=== PATIENT | female | born 1955 | race African-American/Black ===

== ENCOUNTER → 2016-09-17 | Outpatient (REF) | payer OTHER ==
[~2016-09-17] MED LIST: /TIOT18INH INH; ADVAIR PO; ALLE25CA OR; ASPI81TA83 OR; ATEN25TA OR; DYAZ37.5 OR; IBUP600T OR; ROSU10TA OR; VENTAER IN; VICO5TAB PO
[2016-09-17 19:58] LABS: ANION GAP 9 MEQ/L (8-16); BLOOD UREA NITROGEN 15 MG/DL (7-18); CALCIUM LEVEL 9.6 MG/DL (8.8-10.2); CARBON DIOXIDE LEVEL 29 MEQ/L (21-32); CHLORIDE LEVEL 104 MEQ/L (98-107); CREATININE FOR GFR 0.87 MG/DL (0.55-1.02); GLOMERULAR FILTRATION RATE > 60.0 (>45); GLUCOSE, FASTING 91 MG/DL (80-110); MAGNESIUM LEVEL 2.5 MG/DL (1.8-2.4); POTASSIUM SERUM 4.1 MEQ/L (3.5-5.1); SODIUM LEVEL 142 MEQ/L (136-145)
== END | disposition home or self-care (01) ==
LOC: M SFHCADAM 15:59
PROVIDERS: ATTEND Physician Assistant
DX: I10 Essential (primary) hypertension (principal); R94.31 Abnormal electrocardiogram [ECG] [EKG]; G89.29 Other chronic pain

== ENCOUNTER → 2016-11-05 | Outpatient (CLI) | payer OTHER ==
--- NOTE | 2016-11-05 17:48 | ECHO ---
DATE OF PROCEDURE: 11/05/2016 REFERRING PHYSICIAN; Bridgette Hoffmann INDICATION: Abnormal ECG. HEIGHT: 163 cm WEIGHT: 68 kg Dimensions: IVS: 1.2 LV: 4.7 LVPW: 1.3 LA: 3.0 Aorta 3.3. FINDINGS: Study is of fair technical quality. Left ventricle is of normal size and hyperdynamic left ventricle (LV) systolic function, estimated left ventricle ejection fraction (LVEF) approximately 70%. Mild left ventricular hypertrophy (LVH) is noted. Right ventricle appears normal. Both atria appear grossly normal. No pericardial effusion is noted. Aortic valve is mildly sclerotic but has normal mobility. Mitral and tricuspid valves appear normal. Pulmonic valve was not well seen. Inferior vena cava was not well seen. Aortic root, aortic arch and abdominal aorta all appear normal. Doppler interrogation of aortic valve reveals no stenosis or insufficiency. There is mild tricuspid and mild pulmonic insufficiency. Quality of tricuspid regurgitation (TR) jet was not sufficient to adequately estimate pulmonary artery pressure. Mitral inflow pattern and tissue Doppler imaging of mitral annulus reveal grade 1 diastolic dysfunction. CONCLUSIONS: 1. Study is of fair technical quality. 2. Normal LV size with mild LVH and hyperdynamic LV systolic function. Grade 1 diastolic dysfunction. 3. No hemodynamically significant valvular disease. 4. Unable to estimate central venous pressure and pulmonary artery pressure. COMMENT: Subacute bacterial endocarditis (SBE) prophylaxis is not recommended.
== END ==
LOC: M CARPUL 14:39
PROVIDERS: ATTEND Physician Assistant
DX: R94.31 Abnormal electrocardiogram [ECG] [EKG] (principal)

== ENCOUNTER → 2017-10-12 | Outpatient (CLI) | payer OTHER | LOC: M WHC 14:02 | DX: Z12.31 Encounter for screening mammogram for malignant neoplasm of breast (principal); Z78.0 Asymptomatic menopausal state | CPT/HCPCS: 77067 ==

== ENCOUNTER → 2017-10-26 | Outpatient (REF) | payer OTHER ==
[2017-10-26 20:04] LABS: APPEARANCE, URINE HAZY (CLEAR); BACTERIA, URINE AUTO 3+ (NEGATIVE); BILIRUBIN, URINE AUTO NEGATIVE (NEGATIVE); BLOOD, URINE BLOOD NEGATIVE (NEGATIVE); CALCIUM OXALATE CRYSTALS SMALL; COLOR, URINE YELLOW (YELLOW); GLUCOSE, URINE (UA) AUTO NEGATIVE (NEGATIVE); KETONE, URINE AUTO NEGATIVE (NEGATIVE); LEUKOCYTE ESTERASE, URINE AUTO NEGATIVE (NEGATIVE); MUCUS, URINE SMALL (NEGATIVE); NITRITE, URINE AUTO NEGATIVE (NEGATIVE); PROTEIN, URINE AUTO NEGATIVE (NEGATIVE); RBC, URINE AUTO 0 /HPF (0-3); SPECIFIC GRAVITY URINE AUTO 1.016 (1.002-1.035); SQUAMOUS EPITHELIAL CELL UR AU 1 /HPF (0-6); UROBILINOGEN, URINE AUTO 0.2 mg/dL (0.0-2.0); WBC, URINE AUTO 1 /HPF (0-3)
== END ==
LOC: M SFHCADAM 15:50
DX: R30.0 Dysuria (principal); F11.90 Opioid use, unspecified, uncomplicated; F17.219 Nicotine dependence, cigarettes, with unspecified nicotine-induced disorders; I10 Essential (primary) hypertension; R63.5 Abnormal weight gain; M15.9 Polyosteoarthritis, unspecified; E78.4 Other hyperlipidemia
CPT/HCPCS: 81001

== ENCOUNTER 2018-02-20 14:58 | Emergency (ER) | payer OTHER ==
[2018-02-20] MEDS: AMOXICILLIN 500 MG CAP PO (19:30)
== END 2018-02-20 19:37 | disposition home or self-care (01) ==
LOC: M ED 14:58
DX: K04.7 Periapical abscess without sinus (principal); S02.5XXA Fracture of tooth (traumatic), initial encounter for closed fracture; X58.XXXA Exposure to other specified factors, initial encounter; Y92.89 Other specified places as the place of occurrence of the external cause; I10 Essential (primary) hypertension; F17.200 Nicotine dependence, unspecified, uncomplicated; Z79.899 Other long term (current) drug therapy; Z79.51 Long term (current) use of inhaled steroids
CPT/HCPCS: 99282

== ENCOUNTER 2018-05-31 13:29 | Inpatient (IN) | payer OTHER ==
[2018-05-31 14:58] LABS: BASO % 0.4 % (0.0-1.0); EOS # 0.1 10^3/uL (0.0-0.50); EOS % 1.1 % (0.0-3.0); HEMATOCRIT 42.9 % (36.0-47.0); HEMOGLOBIN 13.7 g/dl (12.0-15.5); IMMATURE GRANULOCYTE % 0.2 % (0-3.0); LYMPH # 1.8 10^3/uL (1.5-4.5); LYMPH % 19.3 % (24.0-44.0); MEAN CORPUSCULAR HEMOGLOBIN 30.3 pg (27.0-33.0); MEAN CORPUSCULAR HGB CONC 31.9 g/dl (32.0-36.5); MEAN CORPUSCULAR VOLUME 94.9 fl (80.0-96.0); MONO # 0.6 10^3/uL (0.0-0.8); NEUTROPHILS # 6.8 10^3/uL (1.8-7.7); PLATELET COUNT, AUTOMATED 285 10^3/uL (150-450); RED BLOOD COUNT 4.52 10^6/uL (4.00-5.40); RED CELL DISTRIBUTION WIDTH 13.7 % (11.5-14.5); WHITE BLOOD COUNT 9.4 10^3/uL (4.0-10.0)
[2018-05-31 15:13] LABS: PARTIAL THROMBOPLASTIN TIME 33.2 SECONDS (25.4-37.6)
[2018-05-31 15:18] LABS: INR 0.96; PROTHROMBIN TIME 12.9 SECONDS (12.1-14.4)
[2018-05-31 15:27] LABS: ANION GAP 8 MEQ/L (8-16); BLOOD UREA NITROGEN 15 MG/DL (7-18); CALCIUM LEVEL 9.3 MG/DL (8.8-10.2); CARBON DIOXIDE LEVEL 32 MEQ/L (21-32); CHLORIDE LEVEL 104 MEQ/L (98-107); CPK CREATINE PHOSPHOKINASE 157 U/L (26-192); GLOMERULAR FILTRATION RATE > 60.0 (>45); GLUCOSE, FASTING 94 MG/DL (70-100); MB/CK RELATIVE INDEX 1.15 (< OR =4); POTASSIUM SERUM 3.3 MEQ/L (3.5-5.1); SODIUM LEVEL 144 MEQ/L (136-145); TROPONIN I < 0.02 NG/ML (< 0.10)
[2018-05-31] MEDS ORDERED: BISACODYL 10 MG SUPP PR (17:15)
[2018-05-31] MEDS: LABETALOL HCL 100 MG/20 ML VIAL IV ×3 (18:09→23:57)
[2018-05-31] MEDS: AMPICILLIN SOD/SULBACTAM SOD 3 GM in D5W MINI-BAG PLUS 100 ML IV ×2 (18:27→23:00)
[2018-05-31 18:38] LABS: ERYTHROCYTE SEDIMENTATION RATE 32 mm/hr (0-30)
[2018-05-31 18:50] LABS: C REACTIVE PROTEIN QUANTITATIV 1.64 MG/DL (0.00-0.30); CPK CREATINE PHOSPHOKINASE 174 U/L (26-192); MAGNESIUM LEVEL 2.5 MG/DL (1.8-2.4); MB/CK RELATIVE INDEX 0.86 (< OR =4); TROPONIN I < 0.02 NG/ML (< 0.10)
[2018-05-31] MEDS ORDERED: NORCO, ANEXSIA 5/325MG TABLET (HYDROcodone/ACETAMINOPHEN) PO (19:00)
[2018-05-31] MEDS: IPRATROPIUM 0.5MG/ALBUTEROL 2.5MG INH SOL UD 3ML (DUONEB)(J7620) NEB (19:57)
[2018-05-31] MEDS: HEPARIN SOD (PORCINE) 5000 UNITS/ML VIAL SQ (20:23)
[2018-05-31] MEDS: KCL 20MEQ in NS 1000ML 1,000 ML IV (20:23)
[2018-05-31] MEDS: ASPIRIN 300 MG SUPP PR (20:30)
[2018-05-31] MEDS: FLUTICASONE PROP 0.05% NASAL SPRAY 16 GM (FLONASE) (20:32)
[2018-05-31] MEDS: NICOTINE 21MG/24HR 1 EA TRANSDERMAL TD (20:52)
[2018-05-31] MEDS: ADVAIR HFA 115/21MCG INHALER INH (23:46)
[2018-06-01] MEDS: IPRATROPIUM 0.5MG/ALBUTEROL 2.5MG INH SOL UD 3ML (DUONEB)(J7620) NEB ×5 (01:17→20:00)
[2018-06-01 01:32] LABS: CK-MB VALUE MASS < 1.0 NG/ML (<3.6); CPK CREATINE PHOSPHOKINASE 134 U/L (26-192); MB/CK RELATIVE INDEX 0.75 (< OR =4); TROPONIN I < 0.02 NG/ML (< 0.10)
[2018-06-01] MEDS: AMPICILLIN SOD/SULBACTAM SOD 3 GM in D5W MINI-BAG PLUS 100 ML IV ×2 (04:44→12:02)
[2018-06-01 05:13] LABS: HEMATOCRIT 39.5 % (36.0-47.0); HEMOGLOBIN 12.6 g/dl (12.0-15.5); MEAN CORPUSCULAR HGB CONC 31.9 g/dl (32.0-36.5); PLATELET COUNT, AUTOMATED 265 10^3/uL (150-450); RED CELL DISTRIBUTION WIDTH 13.7 % (11.5-14.5); WHITE BLOOD COUNT 8.2 10^3/uL (4.0-10.0)
[2018-06-01 05:35] LABS: ALBUMIN 3.4 GM/DL (3.2-5.2); ALBUMIN/GLOBULIN RATIO 0.83 (1.00-1.93); ALKALINE PHOSPHATASE 71 U/L (45-117); ALT/SGPT 20 U/L (12-78); ANION GAP 7 MEQ/L (8-16); AST/SGOT 15 U/L (7-37); BILIRUBIN,TOTAL 0.8 MG/DL (0.2-1.0); BLOOD UREA NITROGEN 15 MG/DL (7-18); CALCIUM LEVEL 8.7 MG/DL (8.8-10.2); CARBON DIOXIDE LEVEL 31 MEQ/L (21-32); CHLORIDE LEVEL 105 MEQ/L (98-107); CHOLESTEROL LEVEL 212 MG/DL (<200); CHOLESTEROL RISK RATIO 6.424 (<5); CREATININE FOR GFR 0.86 MG/DL (0.55-1.30); GLOMERULAR FILTRATION RATE > 60.0 (>45); GLUCOSE, FASTING 111 MG/DL (70-100); HDL CHOLESTEROL 33 MG/DL (>40); LDL CHOLESTEROL 144 MG/DL (<100); MAGNESIUM LEVEL 2.1 MG/DL (1.8-2.4); NON-HDL-C 179 MG/DL; SODIUM LEVEL 143 MEQ/L (136-145); TOTAL PROTEIN 7.5 GM/DL (6.4-8.2); TRIGLYCERIDES LEVEL 173 MG/DL (<150)
[2018-06-01] MEDS: LABETALOL HCL 100 MG/20 ML VIAL IV ×3 (06:00→18:33)
[2018-06-01] MEDS: KCL 10MEQ/100ML SWI (KRUN) 10 MEQ in APPROPRIATE DILUENT 1 EA IV ×5 (06:54→12:03)
[2018-06-01] MEDS: TIOTROPIUM INHALER/CAPSULE (SPIRIVA) INH (08:31)
[2018-06-01] MEDS: ADVAIR HFA 115/21MCG INHALER INH ×2 (08:32→20:52)
[2018-06-01] MEDS: HEPARIN SOD (PORCINE) 5000 UNITS/ML VIAL SQ ×2 (08:52→21:16)
[2018-06-01] MEDS: ASPIRIN 300 MG SUPP PR (08:54)
[2018-06-01] MEDS: ATORVASTATIN 20 MG TAB PO (09:13)
[2018-06-01 09:48] LABS: CK-MB VALUE MASS < 1.0 NG/ML (<3.6); CPK CREATINE PHOSPHOKINASE 137 U/L (26-192); TROPONIN I < 0.02 NG/ML (< 0.10)
[2018-06-01 09:58] LABS: MB/CK RELATIVE INDEX 0.73 (< OR =4)
[2018-06-01] MEDS: KCL 20MEQ in NS 1000ML 1,000 ML IV ×2 (12:03→18:37)
[2018-06-01] MEDS: LevoFLOXacin IV 500 MG in APPROPRIATE DILUENT 1 EA IV (18:37)
[2018-06-01] MEDS: ACETAMINOPHEN 650 MG SUPP PR (20:14)
[2018-06-01] MEDS: NICOTINE 21MG/24HR 1 EA TRANSDERMAL TD (21:00)
[2018-06-01] MEDS: FLUTICASONE PROP 0.05% NASAL SPRAY 16 GM (FLONASE) (21:16)
[2018-06-02] MEDS: IPRATROPIUM 0.5MG/ALBUTEROL 2.5MG INH SOL UD 3ML (DUONEB)(J7620) NEB ×4 (01:00→20:00)
[2018-06-02] MEDS: KCL 20MEQ in NS 1000ML 1,000 ML IV (05:00)
[2018-06-02 05:09] LABS: HEMATOCRIT 38.2 % (36.0-47.0); MEAN CORPUSCULAR HEMOGLOBIN 29.9 pg (27.0-33.0); MEAN CORPUSCULAR HGB CONC 31.4 g/dl (32.0-36.5); PLATELET COUNT, AUTOMATED 247 10^3/uL (150-450); RED BLOOD COUNT 4.02 10^6/uL (4.00-5.40); RED CELL DISTRIBUTION WIDTH 13.6 % (11.5-14.5); WHITE BLOOD COUNT 7.7 10^3/uL (4.0-10.0)
[2018-06-02 05:30] LABS: ALBUMIN 3.2 GM/DL (3.2-5.2); ALBUMIN/GLOBULIN RATIO 0.76 (1.00-1.93); ALKALINE PHOSPHATASE 67 U/L (45-117); ALT/SGPT 22 U/L (12-78); ANION GAP 9 MEQ/L (8-16); AST/SGOT 17 U/L (7-37); BILIRUBIN,TOTAL 0.8 MG/DL (0.2-1.0); BLOOD UREA NITROGEN 9 MG/DL (7-18); CALCIUM LEVEL 8.5 MG/DL (8.8-10.2); CARBON DIOXIDE LEVEL 27 MEQ/L (21-32); CHLORIDE LEVEL 107 MEQ/L (98-107); CREATININE FOR GFR 0.84 MG/DL (0.55-1.30); GLOMERULAR FILTRATION RATE > 60.0 (>45); GLUCOSE, FASTING 106 MG/DL (70-100); POTASSIUM SERUM 3.2 MEQ/L (3.5-5.1); SODIUM LEVEL 143 MEQ/L (136-145); TOTAL PROTEIN 7.4 GM/DL (6.4-8.2)
[2018-06-02] MEDS: LABETALOL HCL 100 MG/20 ML VIAL IV ×4 (06:05→15:25)
[2018-06-02] MEDS: ADVAIR HFA 115/21MCG INHALER INH ×2 (07:50→20:20)
[2018-06-02] MEDS: TIOTROPIUM INHALER/CAPSULE (SPIRIVA) INH (07:50)
[2018-06-02] MEDS: HEPARIN SOD (PORCINE) 5000 UNITS/ML VIAL SQ ×2 (08:47→19:38)
[2018-06-02] MEDS: ATORVASTATIN 20 MG TAB PO (08:47)
[2018-06-02] MEDS: ASPIRIN 325 MG TAB PO (08:47)
[2018-06-02] MEDS ORDERED: LABETALOL HCL 100 MG/20 ML VIAL IV (12:00)
[2018-06-02] MEDS: LevoFLOXacin IV 500 MG in APPROPRIATE DILUENT 1 EA IV (17:12)
[2018-06-02] MEDS: LABETALOL 100 MG TAB PO (18:18)
[2018-06-02] MEDS: NICOTINE 21MG/24HR 1 EA TRANSDERMAL TD ×2 (19:38→19:59)
[2018-06-02] MEDS: LISINOPRIL 5 MG TAB PO (19:39)
[2018-06-02] MEDS: FLUTICASONE PROP 0.05% NASAL SPRAY 16 GM (FLONASE) (19:39)
[2018-06-02] MEDS: hydrALAZINE INJ 20 MG/ML VIAL IV (21:48)
[2018-06-03] MEDS: LABETALOL 100 MG TAB PO ×5 (00:31→23:10)
[2018-06-03] MEDS: IPRATROPIUM 0.5MG/ALBUTEROL 2.5MG INH SOL UD 3ML (DUONEB)(J7620) NEB ×4 (01:11→20:00)
[2018-06-03 04:31] LABS: HEMATOCRIT 38.3 % (36.0-47.0); HEMOGLOBIN 12.4 g/dl (12.0-15.5); MEAN CORPUSCULAR HEMOGLOBIN 30.2 pg (27.0-33.0); MEAN CORPUSCULAR HGB CONC 32.4 g/dl (32.0-36.5); MEAN CORPUSCULAR VOLUME 93.4 fl (80.0-96.0); PLATELET COUNT, AUTOMATED 266 10^3/uL (150-450); RED CELL DISTRIBUTION WIDTH 13.8 % (11.5-14.5); WHITE BLOOD COUNT 8.6 10^3/uL (4.0-10.0)
[2018-06-03 04:51] LABS: ALBUMIN 3.3 GM/DL (3.2-5.2); ALBUMIN/GLOBULIN RATIO 0.77 (1.00-1.93); ALKALINE PHOSPHATASE 67 U/L (45-117); ALT/SGPT 24 U/L (12-78); ANION GAP 9 MEQ/L (8-16); AST/SGOT 18 U/L (7-37); BILIRUBIN,TOTAL 0.6 MG/DL (0.2-1.0); BLOOD UREA NITROGEN 9 MG/DL (7-18); CALCIUM LEVEL 8.9 MG/DL (8.8-10.2); CARBON DIOXIDE LEVEL 25 MEQ/L (21-32); CHLORIDE LEVEL 105 MEQ/L (98-107); CREATININE FOR GFR 0.81 MG/DL (0.55-1.30); GLOMERULAR FILTRATION RATE > 60.0 (>45); GLUCOSE, FASTING 115 MG/DL (70-100); MAGNESIUM LEVEL 1.9 MG/DL (1.8-2.4); POTASSIUM SERUM 3.1 MEQ/L (3.5-5.1); SODIUM LEVEL 139 MEQ/L (136-145); TOTAL PROTEIN 7.6 GM/DL (6.4-8.2)
[2018-06-03] MEDS: TIOTROPIUM INHALER/CAPSULE (SPIRIVA) INH (07:49)
[2018-06-03] MEDS: ADVAIR HFA 115/21MCG INHALER INH ×2 (07:50→20:25)
[2018-06-03] MEDS: ASPIRIN 325 MG TAB PO (09:29)
[2018-06-03] MEDS: LISINOPRIL 5 MG TAB PO (09:29)
[2018-06-03] MEDS: ATORVASTATIN 20 MG TAB PO (09:29)
[2018-06-03] MEDS: HEPARIN SOD (PORCINE) 5000 UNITS/ML VIAL SQ (09:30)
[2018-06-03] MEDS: POTASSIUM CHLORIDE 10 MEQ SR TABLET PO (16:17)
[2018-06-03] MEDS: LevoFLOXacin IV 500 MG in APPROPRIATE DILUENT 1 EA IV (17:12)
[2018-06-03] MEDS: FLUTICASONE PROP 0.05% NASAL SPRAY 16 GM (FLONASE) (20:38)
[2018-06-03] MEDS: LISINOPRIL 10 MG TAB PO (20:38)
[2018-06-03] MEDS: NICOTINE 21MG/24HR 1 EA TRANSDERMAL TD ×3 (20:39→21:00)
[2018-06-04] MEDS: IPRATROPIUM 0.5MG/ALBUTEROL 2.5MG INH SOL UD 3ML (DUONEB)(J7620) NEB ×4 (00:45→19:41)
[2018-06-04 04:38] LABS: MEAN CORPUSCULAR HEMOGLOBIN 29.9 pg (27.0-33.0); MEAN CORPUSCULAR HGB CONC 32.4 g/dl (32.0-36.5); MEAN CORPUSCULAR VOLUME 92.3 fl (80.0-96.0); PLATELET COUNT, AUTOMATED 265 10^3/uL (150-450); RED BLOOD COUNT 4.01 10^6/uL (4.00-5.40); RED CELL DISTRIBUTION WIDTH 13.8 % (11.5-14.5); WHITE BLOOD COUNT 7.5 10^3/uL (4.0-10.0)
[2018-06-04 05:01] LABS: ALBUMIN 3.1 GM/DL (3.2-5.2); ALKALINE PHOSPHATASE 60 U/L (45-117); ALT/SGPT 24 U/L (12-78); ANION GAP 10 MEQ/L (8-16); AST/SGOT 16 U/L (7-37); BILIRUBIN,TOTAL 0.8 MG/DL (0.2-1.0); BLOOD UREA NITROGEN 14 MG/DL (7-18); CARBON DIOXIDE LEVEL 26 MEQ/L (21-32); CHLORIDE LEVEL 105 MEQ/L (98-107); CREATININE FOR GFR 0.78 MG/DL (0.55-1.30); GLOMERULAR FILTRATION RATE > 60.0 (>45); GLUCOSE, FASTING 106 MG/DL (70-100); MAGNESIUM LEVEL 1.9 MG/DL (1.8-2.4); POTASSIUM SERUM 3.1 MEQ/L (3.5-5.1); SODIUM LEVEL 141 MEQ/L (136-145); TOTAL PROTEIN 7.5 GM/DL (6.4-8.2)
[2018-06-04] MEDS: LABETALOL 100 MG TAB PO ×4 (06:00→23:12)
[2018-06-04] MEDS: POTASSIUM CHLORIDE 10 MEQ SR TABLET PO ×2 (08:19→20:34)
[2018-06-04] MEDS: ATORVASTATIN 20 MG TAB PO (08:19)
[2018-06-04] MEDS: ASPIRIN 81 MG ENTERIC TAB PO (08:19)
[2018-06-04] MEDS: LISINOPRIL 10 MG TAB PO (08:20)
[2018-06-04] MEDS: APIXABAN 5 MG TAB (ELIQUIS) PO ×2 (08:20→20:34)
[2018-06-04] MEDS: ADVAIR HFA 115/21MCG INHALER INH ×2 (08:44→19:41)
[2018-06-04] MEDS: TIOTROPIUM INHALER/CAPSULE (SPIRIVA) INH (08:45)
[2018-06-04] MEDS: amLODIPine 5 MG TAB PO (15:55)
[2018-06-04] MEDS: LevoFLOXacin IV 500 MG in APPROPRIATE DILUENT 1 EA IV (17:28)
[2018-06-04] MEDS: NICOTINE 21MG/24HR 1 EA TRANSDERMAL TD (20:35)
[2018-06-04] MEDS: FLUTICASONE PROP 0.05% NASAL SPRAY 16 GM (FLONASE) (20:35)
[2018-06-04] MEDS: hydrALAZINE INJ 20 MG/ML VIAL IV (22:27)
[2018-06-05] MEDS: IPRATROPIUM 0.5MG/ALBUTEROL 2.5MG INH SOL UD 3ML (DUONEB)(J7620) NEB ×3 (01:15→13:54)
[2018-06-05 04:39] LABS: HEMOGLOBIN 12.5 g/dl (12.0-15.5); MEAN CORPUSCULAR HEMOGLOBIN 30.2 pg (27.0-33.0); MEAN CORPUSCULAR HGB CONC 32.1 g/dl (32.0-36.5); MEAN CORPUSCULAR VOLUME 94.2 fl (80.0-96.0); PLATELET COUNT, AUTOMATED 290 10^3/uL (150-450); RED BLOOD COUNT 4.14 10^6/uL (4.00-5.40)
[2018-06-05 05:02] LABS: ALBUMIN 3.2 GM/DL (3.2-5.2); ALBUMIN/GLOBULIN RATIO 0.73 (1.00-1.93); ALKALINE PHOSPHATASE 62 U/L (45-117); ALT/SGPT 24 U/L (12-78); ANION GAP 7 MEQ/L (8-16); AST/SGOT 20 U/L (7-37); BILIRUBIN,TOTAL 0.6 MG/DL (0.2-1.0); BLOOD UREA NITROGEN 18 MG/DL (7-18); CALCIUM LEVEL 9.2 MG/DL (8.8-10.2); CARBON DIOXIDE LEVEL 27 MEQ/L (21-32); CHLORIDE LEVEL 108 MEQ/L (98-107); CREATININE FOR GFR 0.84 MG/DL (0.55-1.30); GLOMERULAR FILTRATION RATE > 60.0 (>45); GLUCOSE, FASTING 118 MG/DL (70-100); POTASSIUM SERUM 3.6 MEQ/L (3.5-5.1); SODIUM LEVEL 142 MEQ/L (136-145); TOTAL PROTEIN 7.6 GM/DL (6.4-8.2)
[2018-06-05] MEDS: LABETALOL 100 MG TAB PO ×2 (06:00→12:00)
[2018-06-05] MEDS: ADVAIR HFA 115/21MCG INHALER INH (08:19)
[2018-06-05] MEDS: TIOTROPIUM INHALER/CAPSULE (SPIRIVA) INH (08:19)
[2018-06-05] MEDS: ATORVASTATIN 20 MG TAB PO (09:13)
[2018-06-05] MEDS: ASPIRIN 81 MG ENTERIC TAB PO (09:13)
[2018-06-05] MEDS: amLODIPine 5 MG TAB PO (09:13)
[2018-06-05] MEDS: APIXABAN 5 MG TAB (ELIQUIS) PO (09:13)
[2018-06-05] MEDS: POTASSIUM CHLORIDE 10 MEQ SR TABLET PO (09:14)
[2018-06-05 12:53] LABS: BEDSIDE GLUCOSE 101 MG/DL (80-115)
[2018-06-08 00:07] LABS: ANCA-ATYPICAL <1:20 titer (Neg:<1:20); ANTI THROMBIN 3 ANTIGEN IMMUNO 102 % (72-124); ANTI THROMBIN 3 FUNCT ACTIVITY 133 % (75-135); ANTINUCLEAR ANTIBODIES DIRECT Negative (Negative); CARDIOLIPIN IGA ANTIBODY <9 APL U/mL (0-11); CARDIOLIPIN IGG ANTIBODY <9 GPL U/mL (0-14); CARDIOLIPIN IGM ANTIBODY <9 MPL U/mL (0-12); CYTOPLASMIC NEUTROP AB ANCA-C <1:20 titer (Neg:<1:20); HOMOCYST(E)INE SERUM 11.9 umol/L (0.0-15.0); PERINUCLEAR AB ANCA-P <1:20 titer (Neg:<1:20); PROTEIN C ANTIGEN 141 % (60-150); PROTEIN S ANTIGEN FREE 70 % (57-157); PROTEIN S ANTIGEN TOTAL 124 % (60-150); SJOGREN'S ANTI SS-A <0.2 AI (0.0-0.9); SJOGREN'S ANTI SS-B <0.2 AI (0.0-0.9)
== END 2018-06-05 16:00 | DRG 45 ==
LOC: M ED 13:29 → M ED INP 16:54 → M ICU 20:01
PROVIDERS: Hospitalist
DX: I63.442 Cerebral infarction due to embolism of left cerebellar artery (principal); K76.0 Fatty (change of) liver, not elsewhere classified; R47.01 Aphasia; E55.9 Vitamin D deficiency, unspecified; F17.210 Nicotine dependence, cigarettes, uncomplicated; J44.9 Chronic obstructive pulmonary disease, unspecified; M19.90 Unspecified osteoarthritis, unspecified site; E78.5 Hyperlipidemia, unspecified; J45.909 Unspecified asthma, uncomplicated; I10 Essential (primary) hypertension; R29.810 Facial weakness; M81.0 Age-related osteoporosis without current pathological fracture; K04.7 Periapical abscess without sinus; R47.1 Dysarthria and anarthria; J01.90 Acute sinusitis, unspecified; Z79.899 Other long term (current) drug therapy; Z91.048 Other nonmedicinal substance allergy status; Z90.710 Acquired absence of both cervix and uterus; Z82.3 Family history of stroke; Z79.891 Long term (current) use of opiate analgesic

== ENCOUNTER 2018-06-05 16:05 | Inpatient (IN) | payer OTHER ==
[2018-06-05] MEDS ORDERED: MAALOX 30 ML SUSP *UDC PO (17:30)
[2018-06-05] MEDS ORDERED: IPRATROPIUM 0.5MG/ALBUTEROL 2.5MG INH SOL UD 3ML (DUONEB)(J7620) NEB (17:45)
[2018-06-05] MEDS: LevoFLOXacin 500 MG TABLET PO (18:00)
[2018-06-05] MEDS: ADVAIR HFA 115/21MCG INHALER INH (19:56)
[2018-06-05] MEDS: IPRATROPIUM 0.5MG/ALBUTEROL 2.5MG INH SOL UD 3ML (DUONEB)(J7620) NEB (19:57)
[2018-06-05] MEDS ORDERED: PILL CRUSHER/CUTTER 1 EACH XX (21:30)
[2018-06-05] MEDS: LABETALOL 100 MG TAB PO (21:37)
[2018-06-05] MEDS: APIXABAN 5 MG TAB (ELIQUIS) PO (21:38)
[2018-06-05] MEDS: POTASSIUM CHLORIDE 10 MEQ SR TABLET PO (21:39)
[2018-06-05] MEDS: DOCUSATE SODIUM 100 MG CAP PO (21:41)
[2018-06-05] MEDS: SENNA 8.6 MG TAB (SENOKOT) PO (21:41)
[2018-06-05] MEDS: FLUTICASONE PROP 0.05% NASAL SPRAY 16 GM (FLONASE) NARES (21:58)
[2018-06-06] MEDS: IPRATROPIUM 0.5MG/ALBUTEROL 2.5MG INH SOL UD 3ML (DUONEB)(J7620) NEB ×4 (00:22→20:00)
[2018-06-06] MEDS: TIOTROPIUM INHALER/CAPSULE (SPIRIVA) INH (07:27)
[2018-06-06 07:46] LABS: BASO % 0.5 % (0.0-1.0); EOS # 0.2 10^3/uL (0.0-0.50); EOS % 2.7 % (0.0-3.0); HEMATOCRIT 36.6 % (36.0-47.0); HEMOGLOBIN 11.6 g/dl (12.0-15.5); IMMATURE GRANULOCYTE % 0.5 % (0-3.0); LYMPH # 3.1 10^3/uL (1.5-4.5); LYMPH % 36.7 % (24.0-44.0); MEAN CORPUSCULAR HEMOGLOBIN 29.9 pg (27.0-33.0); MEAN CORPUSCULAR HGB CONC 31.7 g/dl (32.0-36.5); MEAN CORPUSCULAR VOLUME 94.3 fl (80.0-96.0); MONO # 0.6 10^3/uL (0.0-0.8); NEUTROPHILS # 4.5 10^3/uL (1.8-7.7); NEUTROPHILS % 52.6 % (36.0-66.0); PLATELET COUNT, AUTOMATED 302 10^3/uL (150-450); RED BLOOD COUNT 3.88 10^6/uL (4.00-5.40); RED CELL DISTRIBUTION WIDTH 14.2 % (11.5-14.5); WHITE BLOOD COUNT 8.6 10^3/uL (4.0-10.0)
[2018-06-06] MEDS: ADVAIR HFA 115/21MCG INHALER INH ×2 (08:05→21:05)
[2018-06-06 08:08] LABS: ALBUMIN 3.1 GM/DL (3.2-5.2); ALBUMIN/GLOBULIN RATIO 0.74 (1.00-1.93); ALKALINE PHOSPHATASE 63 U/L (45-117); ALT/SGPT 27 U/L (12-78); ANION GAP 7 MEQ/L (8-16); AST/SGOT 22 U/L (7-37); BILIRUBIN,TOTAL 0.8 MG/DL (0.2-1.0); BLOOD UREA NITROGEN 17 MG/DL (7-18); CARBON DIOXIDE LEVEL 28 MEQ/L (21-32); CHLORIDE LEVEL 108 MEQ/L (98-107); CREATININE FOR GFR 0.81 MG/DL (0.55-1.30); GLOMERULAR FILTRATION RATE > 60.0 (>45); GLUCOSE, FASTING 88 MG/DL (70-100); POTASSIUM SERUM 4.1 MEQ/L (3.5-5.1); SODIUM LEVEL 143 MEQ/L (136-145); TOTAL PROTEIN 7.3 GM/DL (6.4-8.2)
[2018-06-06] MEDS: ATORVASTATIN 20 MG TAB PO (08:36)
[2018-06-06] MEDS: amLODIPine 10 MG TAB PO (08:36)
[2018-06-06] MEDS: APIXABAN 5 MG TAB (ELIQUIS) PO ×2 (08:36→20:54)
[2018-06-06] MEDS: ASPIRIN 81 MG ENTERIC TAB PO (08:36)
[2018-06-06] MEDS: LABETALOL 100 MG TAB PO ×3 (08:36→20:55)
[2018-06-06] MEDS: PANTOPRAZOLE 40MG TAB (PROTONIX) PO (08:36)
[2018-06-06] MEDS: NICOTINE 14 MG/24 HR TRANSDERMAL TD (08:37)
[2018-06-06] MEDS: FLUTICASONE PROP 0.05% NASAL SPRAY 16 GM (FLONASE) NARES ×2 (08:37→20:56)
[2018-06-06] MEDS: POTASSIUM CHLORIDE 10 MEQ SR TABLET PO ×2 (08:38→20:54)
[2018-06-06] MEDS: DOCUSATE SODIUM 100 MG CAP PO ×3 (08:38→20:55)
[2018-06-06] MEDS: SODIUM CHLORIDE NASAL 0.65% SPRAY BTL (OCEAN) ×2 (09:00→21:00)
[2018-06-06] MEDS: ASCORBIC ACID 500 MG TAB PO ×2 (11:24→20:54)
[2018-06-06] MEDS: LISINOPRIL 10 MG TAB PO (11:24)
[2018-06-06] MEDS: THIAMINE 100 MG TAB PO (11:24)
[2018-06-06 14:51] LABS: APPEARANCE, URINE CLEAR (CLEAR); BACTERIA, URINE AUTO NEGATIVE (NEGATIVE); BILIRUBIN, URINE AUTO NEGATIVE (NEGATIVE); BLOOD, URINE BLOOD NEGATIVE (NEGATIVE); COLOR, URINE YELLOW (YELLOW); GLUCOSE, URINE (UA) AUTO NEGATIVE (NEGATIVE); KETONE, URINE AUTO NEGATIVE (NEGATIVE); LEUKOCYTE ESTERASE, URINE AUTO NEGATIVE (NEGATIVE); MUCUS, URINE SMALL (NEGATIVE); NITRITE, URINE AUTO NEGATIVE (NEGATIVE); PROTEIN, URINE AUTO NEGATIVE (NEGATIVE); RBC, URINE AUTO 3 /HPF (0-3); SQUAMOUS EPITHELIAL CELL UR AU 1 /HPF (0-6); WBC, URINE AUTO 1 /HPF (0-3)
[2018-06-06] MEDS: LevoFLOXacin 500 MG TABLET PO (17:04)
[2018-06-06] MEDS: SPIRONOLACTONE 25 MG TAB PO (17:08)
[2018-06-06] MEDS: SENNA 8.6 MG TAB (SENOKOT) PO (20:54)
[2018-06-06] MEDS ORDERED: LISINOPRIL 10 MG TAB PO (21:00)
[2018-06-07] MEDS: IPRATROPIUM 0.5MG/ALBUTEROL 2.5MG INH SOL UD 3ML (DUONEB)(J7620) NEB ×4 (01:45→20:00)
[2018-06-07] MEDS: TIOTROPIUM INHALER/CAPSULE (SPIRIVA) INH (07:34)
[2018-06-07] MEDS: ADVAIR HFA 115/21MCG INHALER INH ×2 (07:35→20:11)
[2018-06-07 07:55] LABS: ALBUMIN 3.3 GM/DL (3.2-5.2); ANION GAP 7 MEQ/L (8-16); BLOOD UREA NITROGEN 19 MG/DL (7-18); CALCIUM LEVEL 9.3 MG/DL (8.8-10.2); CARBON DIOXIDE LEVEL 25 MEQ/L (21-32); CHLORIDE LEVEL 110 MEQ/L (98-107); CREATININE FOR GFR 0.85 MG/DL (0.55-1.30); GLOMERULAR FILTRATION RATE > 60.0 (>45); GLUCOSE, FASTING 87 MG/DL (70-100); PHOSPHORUS LEVEL 3.4 MG/DL (2.5-4.9); POTASSIUM SERUM 4.3 MEQ/L (3.5-5.1); SODIUM LEVEL 142 MEQ/L (136-145)
[2018-06-07] MEDS: SODIUM CHLORIDE NASAL 0.65% SPRAY BTL (OCEAN) ×2 (09:00→21:00)
[2018-06-07] MEDS: DOCUSATE SODIUM 100 MG CAP PO ×2 (09:00→21:00)
[2018-06-07] MEDS: FLUTICASONE PROP 0.05% NASAL SPRAY 16 GM (FLONASE) NARES ×2 (09:00→21:18)
[2018-06-07] MEDS ORDERED: PROHANCE 279.3MG/ML 15ML VIAL (A9576) As Ordered (09:07)
[2018-06-07] MEDS: PANTOPRAZOLE 40MG TAB (PROTONIX) PO (10:17)
[2018-06-07] MEDS: amLODIPine 10 MG TAB PO (10:18)
[2018-06-07] MEDS: POTASSIUM CHLORIDE 10 MEQ SR TABLET PO ×2 (10:18→21:18)
[2018-06-07] MEDS: ATORVASTATIN 20 MG TAB PO (10:18)
[2018-06-07] MEDS: SPIRONOLACTONE 25 MG TAB PO (10:23)
[2018-06-07] MEDS: THIAMINE 100 MG TAB PO (10:23)
[2018-06-07] MEDS: LABETALOL 100 MG TAB PO ×3 (10:23→21:17)
[2018-06-07] MEDS: ASPIRIN 81 MG ENTERIC TAB PO (10:24)
[2018-06-07] MEDS: ASCORBIC ACID 500 MG TAB PO ×2 (10:24→21:17)
[2018-06-07] MEDS: APIXABAN 5 MG TAB (ELIQUIS) PO ×2 (10:25→21:17)
[2018-06-07] MEDS: LISINOPRIL 20 MG TAB PO ×2 (13:42→21:18)
[2018-06-07] MEDS: LevoFLOXacin 500 MG TABLET PO (17:46)
[2018-06-07] MEDS: SENNA 8.6 MG TAB (SENOKOT) PO (21:00)
[2018-06-07] MEDS ORDERED: LABETALOL 100 MG TAB PO (21:00)
[2018-06-08] MEDS: IPRATROPIUM 0.5MG/ALBUTEROL 2.5MG INH SOL UD 3ML (DUONEB)(J7620) NEB ×4 (01:31→20:00)
[2018-06-08] MEDS: TIOTROPIUM INHALER/CAPSULE (SPIRIVA) INH (07:23)
[2018-06-08] MEDS: ADVAIR HFA 115/21MCG INHALER INH ×2 (07:24→20:06)
[2018-06-08 07:44] LABS: ALBUMIN 3.1 GM/DL (3.2-5.2); ANION GAP 6 MEQ/L (8-16); BLOOD UREA NITROGEN 15 MG/DL (7-18); CALCIUM LEVEL 8.7 MG/DL (8.8-10.2); CARBON DIOXIDE LEVEL 25 MEQ/L (21-32); CHLORIDE LEVEL 105 MEQ/L (98-107); CREATININE FOR GFR 0.91 MG/DL (0.55-1.30); GLOMERULAR FILTRATION RATE > 60.0 (>45); GLUCOSE, FASTING 95 MG/DL (70-100); PHOSPHORUS LEVEL 3.6 MG/DL (2.5-4.9); POTASSIUM SERUM 4.6 MEQ/L (3.5-5.1); SODIUM LEVEL 136 MEQ/L (136-145)
[2018-06-08] MEDS: DOCUSATE SODIUM 100 MG CAP PO ×2 (09:00→20:25)
[2018-06-08] MEDS: THIAMINE 100 MG TAB PO (09:18)
[2018-06-08] MEDS: PANTOPRAZOLE 40MG TAB (PROTONIX) PO (09:18)
[2018-06-08] MEDS: amLODIPine 10 MG TAB PO (09:18)
[2018-06-08] MEDS: APIXABAN 5 MG TAB (ELIQUIS) PO ×2 (09:18→20:53)
[2018-06-08] MEDS: SPIRONOLACTONE 25 MG TAB PO (09:18)
[2018-06-08] MEDS: LISINOPRIL 20 MG TAB PO ×2 (09:18→20:52)
[2018-06-08] MEDS: POTASSIUM CHLORIDE 10 MEQ SR TABLET PO ×2 (09:19→20:53)
[2018-06-08] MEDS: LABETALOL 100 MG TAB PO ×2 (09:19→20:53)
[2018-06-08] MEDS: ATORVASTATIN 20 MG TAB PO (09:19)
[2018-06-08] MEDS: ASPIRIN 81 MG ENTERIC TAB PO (09:20)
[2018-06-08] MEDS: FLUTICASONE PROP 0.05% NASAL SPRAY 16 GM (FLONASE) NARES ×2 (09:20→20:54)
[2018-06-08] MEDS: SODIUM CHLORIDE NASAL 0.65% SPRAY BTL (OCEAN) ×2 (09:21→20:54)
[2018-06-08] MEDS: LevoFLOXacin 500 MG TABLET PO (17:03)
[2018-06-08] MEDS: SENNA 8.6 MG TAB (SENOKOT) PO (21:00)
[2018-06-09] MEDS: IPRATROPIUM 0.5MG/ALBUTEROL 2.5MG INH SOL UD 3ML (DUONEB)(J7620) NEB ×4 (01:50→20:00)
[2018-06-09] MEDS: ADVAIR HFA 115/21MCG INHALER INH ×2 (07:13→21:35)
[2018-06-09] MEDS: TIOTROPIUM INHALER/CAPSULE (SPIRIVA) INH (07:13)
[2018-06-09 07:48] LABS: ALBUMIN 3.2 GM/DL (3.2-5.2); ANION GAP 9 MEQ/L (8-16); BLOOD UREA NITROGEN 16 MG/DL (7-18); CALCIUM LEVEL 9.5 MG/DL (8.8-10.2); CARBON DIOXIDE LEVEL 25 MEQ/L (21-32); CHLORIDE LEVEL 105 MEQ/L (98-107); CREATININE FOR GFR 1.04 MG/DL (0.55-1.30); GLOMERULAR FILTRATION RATE > 60.0 (>45); GLUCOSE, FASTING 104 MG/DL (70-100); PHOSPHORUS LEVEL 4.1 MG/DL (2.5-4.9); POTASSIUM SERUM 4.2 MEQ/L (3.5-5.1); SODIUM LEVEL 139 MEQ/L (136-145)
[2018-06-09] MEDS: DOCUSATE SODIUM 100 MG CAP PO ×2 (09:00→20:57)
[2018-06-09] MEDS: ASPIRIN 81 MG ENTERIC TAB PO (09:38)
[2018-06-09] MEDS: PANTOPRAZOLE 40MG TAB (PROTONIX) PO (09:38)
[2018-06-09] MEDS: POTASSIUM CHLORIDE 10 MEQ SR TABLET PO ×2 (09:38→20:55)
[2018-06-09] MEDS: amLODIPine 10 MG TAB PO (09:38)
[2018-06-09] MEDS: SPIRONOLACTONE 25 MG TAB PO (09:38)
[2018-06-09] MEDS: ATORVASTATIN 20 MG TAB PO (09:38)
[2018-06-09] MEDS: SODIUM CHLORIDE NASAL 0.65% SPRAY BTL (OCEAN) ×2 (09:39→21:00)
[2018-06-09] MEDS: FLUTICASONE PROP 0.05% NASAL SPRAY 16 GM (FLONASE) NARES ×2 (09:39→21:01)
[2018-06-09] MEDS: LABETALOL 100 MG TAB PO ×2 (09:39→20:53)
[2018-06-09] MEDS: LISINOPRIL 20 MG TAB PO ×2 (09:39→20:53)
[2018-06-09] MEDS: THIAMINE 100 MG TAB PO (09:39)
[2018-06-09] MEDS: APIXABAN 5 MG TAB (ELIQUIS) PO ×2 (09:39→20:54)
[2018-06-09] MEDS: LevoFLOXacin 500 MG TABLET PO (17:13)
[2018-06-09] MEDS: SENNA 8.6 MG TAB (SENOKOT) PO (20:57)
[2018-06-10] MEDS: IPRATROPIUM 0.5MG/ALBUTEROL 2.5MG INH SOL UD 3ML (DUONEB)(J7620) NEB ×4 (01:29→20:00)
[2018-06-10] MEDS: ADVAIR HFA 115/21MCG INHALER INH ×2 (07:25→20:09)
[2018-06-10] MEDS: TIOTROPIUM INHALER/CAPSULE (SPIRIVA) INH (07:25)
[2018-06-10 07:53] LABS: ALBUMIN 3.2 GM/DL (3.2-5.2); ANION GAP 8 MEQ/L (8-16); BLOOD UREA NITROGEN 18 MG/DL (7-18); CALCIUM LEVEL 9.2 MG/DL (8.8-10.2); CARBON DIOXIDE LEVEL 25 MEQ/L (21-32); CHLORIDE LEVEL 105 MEQ/L (98-107); CREATININE FOR GFR 1.01 MG/DL (0.55-1.30); GLOMERULAR FILTRATION RATE > 60.0 (>45); GLUCOSE, FASTING 104 MG/DL (70-100); PHOSPHORUS LEVEL 3.8 MG/DL (2.5-4.9); POTASSIUM SERUM 4.8 MEQ/L (3.5-5.1); SODIUM LEVEL 138 MEQ/L (136-145)
[2018-06-10] MEDS: DOCUSATE SODIUM 100 MG CAP PO ×2 (08:40→21:00)
[2018-06-10] MEDS: amLODIPine 10 MG TAB PO (08:45)
[2018-06-10] MEDS: ATORVASTATIN 20 MG TAB PO (08:46)
[2018-06-10] MEDS: FLUTICASONE PROP 0.05% NASAL SPRAY 16 GM (FLONASE) NARES ×2 (08:46→20:55)
[2018-06-10] MEDS: LABETALOL 100 MG TAB PO ×2 (08:46→20:53)
[2018-06-10] MEDS: APIXABAN 5 MG TAB (ELIQUIS) PO ×2 (08:46→20:54)
[2018-06-10] MEDS: LISINOPRIL 20 MG TAB PO ×2 (08:46→20:54)
[2018-06-10] MEDS: PANTOPRAZOLE 40MG TAB (PROTONIX) PO (08:46)
[2018-06-10] MEDS: SPIRONOLACTONE 25 MG TAB PO (08:46)
[2018-06-10] MEDS: THIAMINE 100 MG TAB PO (08:46)
[2018-06-10] MEDS: ASPIRIN 81 MG ENTERIC TAB PO (08:46)
[2018-06-10] MEDS: POTASSIUM CHLORIDE 10 MEQ SR TABLET PO ×2 (08:46→20:55)
[2018-06-10] MEDS: SODIUM CHLORIDE NASAL 0.65% SPRAY BTL (OCEAN) ×2 (08:47→20:55)
[2018-06-10] MEDS: ACETAMINOPHEN TAB 650MG DOSE (2X325MG) PO (14:16)
[2018-06-10] MEDS: LevoFLOXacin 500 MG TABLET PO (17:02)
[2018-06-10] MEDS: SENNA 8.6 MG TAB (SENOKOT) PO (21:00)
[2018-06-11] MEDS: IPRATROPIUM 0.5MG/ALBUTEROL 2.5MG INH SOL UD 3ML (DUONEB)(J7620) NEB ×4 (02:00→20:00)
[2018-06-11 07:14] LABS: ANION GAP 8 MEQ/L (8-16); BLOOD UREA NITROGEN 15 MG/DL (7-18); CALCIUM LEVEL 8.9 MG/DL (8.8-10.2); CARBON DIOXIDE LEVEL 24 MEQ/L (21-32); CHLORIDE LEVEL 104 MEQ/L (98-107); CREATININE FOR GFR 1.06 MG/DL (0.55-1.30); GLOMERULAR FILTRATION RATE > 60.0 (>45); GLUCOSE, FASTING 104 MG/DL (70-100); PHOSPHORUS LEVEL 3.5 MG/DL (2.5-4.9); POTASSIUM SERUM 4.6 MEQ/L (3.5-5.1); SODIUM LEVEL 136 MEQ/L (136-145)
[2018-06-11] MEDS: TIOTROPIUM INHALER/CAPSULE (SPIRIVA) INH (08:24)
[2018-06-11] MEDS: ADVAIR HFA 115/21MCG INHALER INH ×2 (08:24→21:10)
[2018-06-11] MEDS: ATORVASTATIN 20 MG TAB PO (09:00)
[2018-06-11] MEDS: LABETALOL 100 MG TAB PO ×2 (09:00→21:19)
[2018-06-11] MEDS: ASPIRIN 81 MG ENTERIC TAB PO (09:00)
[2018-06-11] MEDS: LISINOPRIL 20 MG TAB PO ×2 (09:00→21:19)
[2018-06-11] MEDS: amLODIPine 10 MG TAB PO (09:00)
[2018-06-11] MEDS: THIAMINE 100 MG TAB PO (09:00)
[2018-06-11] MEDS: APIXABAN 5 MG TAB (ELIQUIS) PO ×2 (09:00→21:18)
[2018-06-11] MEDS: DOCUSATE SODIUM 100 MG CAP PO ×2 (09:00→21:00)
[2018-06-11] MEDS: POTASSIUM CHLORIDE 10 MEQ SR TABLET PO ×2 (09:00→21:19)
[2018-06-11] MEDS: SODIUM CHLORIDE NASAL 0.65% SPRAY BTL (OCEAN) ×2 (09:01→21:00)
[2018-06-11] MEDS: SPIRONOLACTONE 25 MG TAB PO (09:01)
[2018-06-11] MEDS: PANTOPRAZOLE 40MG TAB (PROTONIX) PO (09:01)
[2018-06-11] MEDS: FLUTICASONE PROP 0.05% NASAL SPRAY 16 GM (FLONASE) NARES ×2 (09:01→21:00)
[2018-06-11] MEDS: LevoFLOXacin 500 MG TABLET PO (17:15)
[2018-06-11] MEDS: SENNA 8.6 MG TAB (SENOKOT) PO (21:00)
[2018-06-12] MEDS: IPRATROPIUM 0.5MG/ALBUTEROL 2.5MG INH SOL UD 3ML (DUONEB)(J7620) NEB ×4 (01:21→19:43)
[2018-06-12 07:52] LABS: ANION GAP 8 MEQ/L (8-16); BLOOD UREA NITROGEN 19 MG/DL (7-18); CALCIUM LEVEL 9.5 MG/DL (8.8-10.2); CARBON DIOXIDE LEVEL 25 MEQ/L (21-32); CHLORIDE LEVEL 104 MEQ/L (98-107); CREATININE FOR GFR 1.21 MG/DL (0.55-1.30); GLUCOSE, FASTING 102 MG/DL (70-100); PHOSPHORUS LEVEL 3.7 MG/DL (2.5-4.9); POTASSIUM SERUM 4.6 MEQ/L (3.5-5.1); SODIUM LEVEL 137 MEQ/L (136-145)
[2018-06-12] MEDS: ADVAIR HFA 115/21MCG INHALER INH ×2 (08:18→19:43)
[2018-06-12] MEDS: TIOTROPIUM INHALER/CAPSULE (SPIRIVA) INH (08:18)
[2018-06-12] MEDS: PANTOPRAZOLE 40MG TAB (PROTONIX) PO (08:21)
[2018-06-12] MEDS: APIXABAN 5 MG TAB (ELIQUIS) PO ×3 (08:21→21:14)
[2018-06-12] MEDS: SPIRONOLACTONE 25 MG TAB PO (08:21)
[2018-06-12] MEDS: THIAMINE 100 MG TAB PO (08:21)
[2018-06-12] MEDS: ATORVASTATIN 20 MG TAB PO (08:22)
[2018-06-12] MEDS: POTASSIUM CHLORIDE 10 MEQ SR TABLET PO ×2 (08:22→21:13)
[2018-06-12] MEDS: amLODIPine 10 MG TAB PO (08:22)
[2018-06-12] MEDS: LABETALOL 100 MG TAB PO ×3 (08:22→21:14)
[2018-06-12] MEDS: LISINOPRIL 20 MG TAB PO ×3 (08:23→21:14)
[2018-06-12] MEDS: ASPIRIN 81 MG ENTERIC TAB PO (08:23)
[2018-06-12] MEDS: DOCUSATE SODIUM 100 MG CAP PO ×2 (08:23→21:00)
[2018-06-12] MEDS: SODIUM CHLORIDE NASAL 0.65% SPRAY BTL (OCEAN) ×2 (08:24→21:00)
[2018-06-12] MEDS: FLUTICASONE PROP 0.05% NASAL SPRAY 16 GM (FLONASE) NARES ×2 (08:24→21:00)
[2018-06-12 11:41] LABS: BASO # 0.1 10^3/uL (0.0-0.2); BASO % 0.4 % (0.0-1.0); EOS # 0.1 10^3/uL (0.0-0.50); EOS % 0.5 % (0.0-3.0); HEMATOCRIT 35.6 % (36.0-47.0); HEMOGLOBIN 11.5 g/dl (12.0-15.5); IMMATURE GRANULOCYTE % 0.9 % (0-3.0); LYMPH # 2.5 10^3/uL (1.5-4.5); LYMPH % 20.9 % (24.0-44.0); MEAN CORPUSCULAR HGB CONC 32.3 g/dl (32.0-36.5); MONO # 1.3 10^3/uL (0.0-0.8); MONO % 10.6 % (0.0-5.0); NEUTROPHILS % 66.7 % (36.0-66.0); PLATELET COUNT, AUTOMATED 369 10^3/uL (150-450); RED BLOOD COUNT 3.83 10^6/uL (4.00-5.40); RED CELL DISTRIBUTION WIDTH 13.8 % (11.5-14.5)
[2018-06-12] MEDS: FLUoxetine 20 MG CAP PO (12:39)
[2018-06-12] MEDS: ANALGESIC BALM CRM 120 GM TOP ×2 (12:39→21:00)
[2018-06-12] MEDS: NICOTINE 21MG/24HR 1 EA TRANSDERMAL TD (12:39)
[2018-06-12 13:08] LABS: ANION GAP 8 MEQ/L (8-16); BLOOD UREA NITROGEN 21 MG/DL (7-18); CALCIUM LEVEL 9.5 MG/DL (8.8-10.2); CARBON DIOXIDE LEVEL 25 MEQ/L (21-32); CHLORIDE LEVEL 103 MEQ/L (98-107); CREATININE FOR GFR 1.28 MG/DL (0.55-1.30); GLOMERULAR FILTRATION RATE 54.3 (>45); GLUCOSE, FASTING 101 MG/DL (70-100); SODIUM LEVEL 136 MEQ/L (136-145)
[2018-06-12 15:18] LABS: KETONE, URINE AUTO RFX NEGATIVE (NEGATIVE); LEUKOCYTE ESTERASE UR AUTO RFX NEGATIVE (NEGATIVE); MUCUS, URINE RFX SMALL (NEGATIVE); NITRITE, URINE AUTO RFX NEGATIVE (NEGATIVE); RBC, URINE AUTO RFX 3 /HPF (0-3); SPECIFIC GRAVITY UR AUTO RFX 1.017 (1.002-1.035); SQUAM EPITHELIAL CELL UR AURFX 1 /HPF (0-6)
[2018-06-12 15:19] LABS: WBC, URINE AUTO RFX 20 /HPF (0-3)
[2018-06-12] MEDS: SENNA 8.6 MG TAB (SENOKOT) PO (21:00)
[2018-06-12] MEDS: ACETAMINOPHEN TAB 650MG DOSE (2X325MG) PO (21:14)
[2018-06-13] MEDS: IPRATROPIUM 0.5MG/ALBUTEROL 2.5MG INH SOL UD 3ML (DUONEB)(J7620) NEB ×4 (02:00→20:00)
[2018-06-13 07:11] LABS: ALBUMIN 2.9 GM/DL (3.2-5.2); ANION GAP 10 MEQ/L (8-16); BLOOD UREA NITROGEN 28 MG/DL (7-18); CALCIUM LEVEL 9.2 MG/DL (8.8-10.2); CARBON DIOXIDE LEVEL 21 MEQ/L (21-32); CHLORIDE LEVEL 105 MEQ/L (98-107); CREATININE FOR GFR 1.26 MG/DL (0.55-1.30); GLOMERULAR FILTRATION RATE 55.3 (>45); GLUCOSE, FASTING 105 MG/DL (70-100); PHOSPHORUS LEVEL 3.9 MG/DL (2.5-4.9); POTASSIUM SERUM 4.6 MEQ/L (3.5-5.1); SODIUM LEVEL 136 MEQ/L (136-145)
[2018-06-13] MEDS: TIOTROPIUM INHALER/CAPSULE (SPIRIVA) INH (08:37)
[2018-06-13] MEDS: ADVAIR HFA 115/21MCG INHALER INH ×2 (08:38→20:09)
[2018-06-13] MEDS: FLUoxetine 20 MG CAP PO (08:59)
[2018-06-13] MEDS: ATORVASTATIN 20 MG TAB PO (08:59)
[2018-06-13] MEDS: ASPIRIN 81 MG ENTERIC TAB PO (09:00)
[2018-06-13] MEDS: amLODIPine 10 MG TAB PO (09:00)
[2018-06-13] MEDS: LISINOPRIL 20 MG TAB PO ×2 (09:00→21:45)
[2018-06-13] MEDS: THIAMINE 100 MG TAB PO (09:00)
[2018-06-13] MEDS: APIXABAN 5 MG TAB (ELIQUIS) PO ×2 (09:00→21:46)
[2018-06-13] MEDS: POTASSIUM CHLORIDE 10 MEQ SR TABLET PO ×2 (09:00→21:46)
[2018-06-13] MEDS: PANTOPRAZOLE 40MG TAB (PROTONIX) PO (09:00)
[2018-06-13] MEDS: ACETAMINOPHEN TAB 650MG DOSE (2X325MG) PO ×2 (09:00→19:02)
[2018-06-13] MEDS: SPIRONOLACTONE 25 MG TAB PO (09:01)
[2018-06-13] MEDS: LABETALOL 100 MG TAB PO ×2 (09:01→21:46)
[2018-06-13] MEDS: DOCUSATE SODIUM 100 MG CAP PO ×2 (09:01→21:00)
[2018-06-13] MEDS: ANALGESIC BALM CRM 120 GM TOP ×2 (09:02→21:00)
[2018-06-13] MEDS: FLUTICASONE PROP 0.05% NASAL SPRAY 16 GM (FLONASE) NARES ×2 (09:02→21:00)
[2018-06-13] MEDS: SODIUM CHLORIDE NASAL 0.65% SPRAY BTL (OCEAN) ×2 (09:02→21:00)
[2018-06-13] MEDS: NICOTINE 21MG/24HR 1 EA TRANSDERMAL TD (09:02)
[2018-06-13] MEDS: LevoFLOXacin 500 MG TABLET PO (11:01)
[2018-06-13] MEDS: SENNA 8.6 MG TAB (SENOKOT) PO (21:00)
[2018-06-14] MEDS: IPRATROPIUM 0.5MG/ALBUTEROL 2.5MG INH SOL UD 3ML (DUONEB)(J7620) NEB ×4 (02:00→20:00)
[2018-06-14 08:15] LABS: ANION GAP 8 MEQ/L (8-16); BLOOD UREA NITROGEN 33 MG/DL (7-18); CALCIUM LEVEL 9.7 MG/DL (8.8-10.2); CARBON DIOXIDE LEVEL 21 MEQ/L (21-32); CHLORIDE LEVEL 109 MEQ/L (98-107); CREATININE FOR GFR 1.25 MG/DL (0.55-1.30); GLOMERULAR FILTRATION RATE 55.8 (>45); GLUCOSE, FASTING 124 MG/DL (70-100); PHOSPHORUS LEVEL 3.6 MG/DL (2.5-4.9); POTASSIUM SERUM 5.6 MEQ/L (3.5-5.1); SODIUM LEVEL 138 MEQ/L (136-145)
[2018-06-14] MEDS: TIOTROPIUM INHALER/CAPSULE (SPIRIVA) INH (08:37)
[2018-06-14] MEDS: ADVAIR HFA 115/21MCG INHALER INH ×3 (08:38→21:00)
[2018-06-14] MEDS: FLUoxetine 20 MG CAP PO (10:02)
[2018-06-14] MEDS: ATORVASTATIN 20 MG TAB PO (10:02)
[2018-06-14] MEDS: LABETALOL 100 MG TAB PO ×2 (10:03→22:46)
[2018-06-14] MEDS: ASPIRIN 81 MG ENTERIC TAB PO (10:03)
[2018-06-14] MEDS: THIAMINE 100 MG TAB PO (10:04)
[2018-06-14] MEDS: amLODIPine 10 MG TAB PO (10:04)
[2018-06-14] MEDS: PANTOPRAZOLE 40MG TAB (PROTONIX) PO (10:04)
[2018-06-14] MEDS: APIXABAN 5 MG TAB (ELIQUIS) PO ×2 (10:04→22:25)
[2018-06-14] MEDS: LISINOPRIL 20 MG TAB PO ×2 (10:04→22:21)
[2018-06-14] MEDS: ANALGESIC BALM CRM 120 GM TOP ×2 (10:05→22:28)
[2018-06-14] MEDS: NICOTINE 21MG/24HR 1 EA TRANSDERMAL TD ×2 (10:05→10:33)
[2018-06-14] MEDS: FLUTICASONE PROP 0.05% NASAL SPRAY 16 GM (FLONASE) NARES ×2 (10:05→22:25)
[2018-06-14] MEDS: SPIRONOLACTONE 25 MG TAB PO (10:05)
[2018-06-14] MEDS: SODIUM CHLORIDE NASAL 0.65% SPRAY BTL (OCEAN) ×2 (10:05→22:26)
[2018-06-14] MEDS: ACETAMINOPHEN TAB 650MG DOSE (2X325MG) PO (10:24)
[2018-06-14] MEDS: DOCUSATE SODIUM 100 MG CAP PO ×2 (10:31→22:26)
[2018-06-14] MEDS: POTASSIUM CHLORIDE 10 MEQ SR TABLET PO (10:33)
[2018-06-14] MEDS: NS 1,000 ML IV (18:58)
[2018-06-14] MEDS: SOD POLYSTYRENE SULFONATE SUSP 15 GM/60 ML UD PO (18:58)
[2018-06-14] MEDS: PERCOCET 5MG/325MG TAB PO (19:50)
[2018-06-14] MEDS: SENNA 8.6 MG TAB (SENOKOT) PO (22:26)
[2018-06-15] MEDS: IPRATROPIUM 0.5MG/ALBUTEROL 2.5MG INH SOL UD 3ML (DUONEB)(J7620) NEB ×4 (02:00→20:00)
[2018-06-15] MEDS: TIOTROPIUM INHALER/CAPSULE (SPIRIVA) INH (07:37)
[2018-06-15] MEDS: ADVAIR HFA 115/21MCG INHALER INH (07:38)
[2018-06-15 07:57] LABS: ALBUMIN 2.6 GM/DL (3.2-5.2); ANION GAP 7 MEQ/L (8-16); BLOOD UREA NITROGEN 25 MG/DL (7-18); CALCIUM LEVEL 8.7 MG/DL (8.8-10.2); CARBON DIOXIDE LEVEL 23 MEQ/L (21-32); CHLORIDE LEVEL 109 MEQ/L (98-107); CREATININE FOR GFR 1.03 MG/DL (0.55-1.30); GLOMERULAR FILTRATION RATE > 60.0 (>45); GLUCOSE, FASTING 100 MG/DL (70-100); PHOSPHORUS LEVEL 3.4 MG/DL (2.5-4.9); SODIUM LEVEL 139 MEQ/L (136-145)
[2018-06-15 08:36] LABS: ALDOS/RENIN RATIO 4.6 (0.0-30.0); ALDOSTERONE 3.7 ng/dL (0.0-30.0); RENIN ACTIVITY 0.812 ng/mL/hr (0.167-5.380)
[2018-06-15] MEDS: APIXABAN 5 MG TAB (ELIQUIS) PO ×2 (09:58→21:06)
[2018-06-15] MEDS: THIAMINE 100 MG TAB PO (09:58)
[2018-06-15] MEDS: ATORVASTATIN 20 MG TAB PO (09:58)
[2018-06-15] MEDS: amLODIPine 10 MG TAB PO (09:58)
[2018-06-15] MEDS: PANTOPRAZOLE 40MG TAB (PROTONIX) PO (09:58)
[2018-06-15] MEDS: SPIRONOLACTONE 25 MG TAB PO (09:58)
[2018-06-15] MEDS: ASPIRIN 81 MG ENTERIC TAB PO (09:58)
[2018-06-15] MEDS: LABETALOL 100 MG TAB PO ×2 (09:59→21:08)
[2018-06-15] MEDS: FLUTICASONE PROP 0.05% NASAL SPRAY 16 GM (FLONASE) NARES ×2 (09:59→21:11)
[2018-06-15] MEDS: SODIUM CHLORIDE NASAL 0.65% SPRAY BTL (OCEAN) ×2 (09:59→21:10)
[2018-06-15] MEDS: LISINOPRIL 20 MG TAB PO ×2 (09:59→21:09)
[2018-06-15] MEDS: ANALGESIC BALM CRM 120 GM TOP ×2 (09:59→21:10)
[2018-06-15] MEDS: DOCUSATE SODIUM 100 MG CAP PO ×2 (10:04→21:06)
[2018-06-15] MEDS: PERCOCET 5MG/325MG TAB PO ×2 (10:04→21:07)
[2018-06-15] MEDS: NICOTINE 21MG/24HR 1 EA TRANSDERMAL TD (10:05)
[2018-06-15] MEDS: FLUoxetine 20 MG CAP PO (13:05)
[2018-06-15] MEDS: SENNA 8.6 MG TAB (SENOKOT) PO (21:06)
[2018-06-16] MEDS: IPRATROPIUM 0.5MG/ALBUTEROL 2.5MG INH SOL UD 3ML (DUONEB)(J7620) NEB ×4 (02:00→19:57)
[2018-06-16 07:12] LABS: HEMATOCRIT 35.2 % (36.0-47.0); HEMOGLOBIN 11.2 g/dl (12.0-15.5); MEAN CORPUSCULAR HEMOGLOBIN 29.9 pg (27.0-33.0); MEAN CORPUSCULAR HGB CONC 31.8 g/dl (32.0-36.5); MEAN CORPUSCULAR VOLUME 94.1 fl (80.0-96.0); PLATELET COUNT, AUTOMATED 372 10^3/uL (150-450); RED BLOOD COUNT 3.74 10^6/uL (4.00-5.40); RED CELL DISTRIBUTION WIDTH 14.1 % (11.5-14.5); WHITE BLOOD COUNT 8.6 10^3/uL (4.0-10.0)
[2018-06-16 07:48] LABS: ALBUMIN 2.8 GM/DL (3.2-5.2); ANION GAP 9 MEQ/L (8-16); BLOOD UREA NITROGEN 25 MG/DL (7-18); CALCIUM LEVEL 9.4 MG/DL (8.8-10.2); CARBON DIOXIDE LEVEL 26 MEQ/L (21-32); CHLORIDE LEVEL 105 MEQ/L (98-107); CREATININE FOR GFR 1.08 MG/DL (0.55-1.30); GLOMERULAR FILTRATION RATE > 60.0 (>45); GLUCOSE, FASTING 90 MG/DL (70-100); PHOSPHORUS LEVEL 3.4 MG/DL (2.5-4.9); SODIUM LEVEL 140 MEQ/L (136-145)
[2018-06-16] MEDS: TIOTROPIUM INHALER/CAPSULE (SPIRIVA) INH (08:05)
[2018-06-16] MEDS: ADVAIR HFA 115/21MCG INHALER INH ×2 (08:05→19:57)
[2018-06-16] MEDS: PANTOPRAZOLE 40MG TAB (PROTONIX) PO (08:55)
[2018-06-16] MEDS: DOCUSATE SODIUM 100 MG CAP PO ×2 (08:55→20:45)
[2018-06-16] MEDS: amLODIPine 10 MG TAB PO (08:55)
[2018-06-16] MEDS: ASPIRIN 81 MG CHEW TABLET PO (08:55)
[2018-06-16] MEDS: LABETALOL 100 MG TAB PO ×2 (08:56→20:45)
[2018-06-16] MEDS: LISINOPRIL 20 MG TAB PO ×2 (08:57→20:45)
[2018-06-16] MEDS: FLUoxetine 20 MG CAP PO (08:57)
[2018-06-16] MEDS: APIXABAN 5 MG TAB (ELIQUIS) PO ×2 (08:57→20:45)
[2018-06-16] MEDS: ATORVASTATIN 20 MG TAB PO (08:58)
[2018-06-16] MEDS: SPIRONOLACTONE 25 MG TAB PO (09:04)
[2018-06-16] MEDS: THIAMINE 100 MG TAB PO (09:04)
[2018-06-16] MEDS: NICOTINE 21MG/24HR 1 EA TRANSDERMAL TD (09:05)
[2018-06-16] MEDS: FLUTICASONE PROP 0.05% NASAL SPRAY 16 GM (FLONASE) NARES ×2 (09:05→20:46)
[2018-06-16] MEDS: SODIUM CHLORIDE NASAL 0.65% SPRAY BTL (OCEAN) ×2 (09:05→20:46)
[2018-06-16] MEDS: ANALGESIC BALM CRM 120 GM TOP ×2 (09:06→20:46)
[2018-06-16] MEDS: PERCOCET 5MG/325MG TAB PO (09:53)
[2018-06-16] MEDS: SENNA 8.6 MG TAB (SENOKOT) PO (20:45)
[2018-06-17] MEDS: IPRATROPIUM 0.5MG/ALBUTEROL 2.5MG INH SOL UD 3ML (DUONEB)(J7620) NEB ×4 (02:00→20:00)
[2018-06-17 07:39] LABS: ALBUMIN 3.1 GM/DL (3.2-5.2); ANION GAP 9 MEQ/L (8-16); BLOOD UREA NITROGEN 23 MG/DL (7-18); CALCIUM LEVEL 9.2 MG/DL (8.8-10.2); CARBON DIOXIDE LEVEL 26 MEQ/L (21-32); CHLORIDE LEVEL 106 MEQ/L (98-107); CREATININE FOR GFR 1.06 MG/DL (0.55-1.30); GLOMERULAR FILTRATION RATE > 60.0 (>45); GLUCOSE, FASTING 130 MG/DL (70-100); PHOSPHORUS LEVEL 3.2 MG/DL (2.5-4.9); POTASSIUM SERUM 3.7 MEQ/L (3.5-5.1); SODIUM LEVEL 141 MEQ/L (136-145)
[2018-06-17] MEDS: ADVAIR HFA 115/21MCG INHALER INH ×2 (08:00→21:01)
[2018-06-17] MEDS: TIOTROPIUM INHALER/CAPSULE (SPIRIVA) INH (08:00)
[2018-06-17] MEDS: amLODIPine 10 MG TAB PO (08:41)
[2018-06-17] MEDS: DOCUSATE SODIUM 100 MG CAP PO ×2 (08:41→20:26)
[2018-06-17] MEDS: APIXABAN 5 MG TAB (ELIQUIS) PO ×2 (08:41→20:29)
[2018-06-17] MEDS: THIAMINE 100 MG TAB PO (08:41)
[2018-06-17] MEDS: PANTOPRAZOLE 40MG TAB (PROTONIX) PO (08:41)
[2018-06-17] MEDS: ATORVASTATIN 20 MG TAB PO (08:41)
[2018-06-17] MEDS: LISINOPRIL 20 MG TAB PO ×2 (08:42→20:27)
[2018-06-17] MEDS: SPIRONOLACTONE 25 MG TAB PO (08:42)
[2018-06-17] MEDS: LABETALOL 100 MG TAB PO ×2 (08:42→20:28)
[2018-06-17] MEDS: FLUoxetine 20 MG CAP PO (08:43)
[2018-06-17] MEDS: SODIUM CHLORIDE NASAL 0.65% SPRAY BTL (OCEAN) ×2 (08:44→21:37)
[2018-06-17] MEDS: ASPIRIN 81 MG CHEW TABLET PO (08:44)
[2018-06-17] MEDS: FLUTICASONE PROP 0.05% NASAL SPRAY 16 GM (FLONASE) NARES ×2 (08:45→21:37)
[2018-06-17] MEDS: ANALGESIC BALM CRM 120 GM TOP ×2 (08:45→21:37)
[2018-06-17] MEDS: NICOTINE 21MG/24HR 1 EA TRANSDERMAL TD (08:45)
[2018-06-17] MEDS: SENNA 8.6 MG TAB (SENOKOT) PO (20:26)
[2018-06-17] MEDS: PERCOCET 5MG/325MG TAB PO (20:29)
[2018-06-18 06:55] LABS: ALBUMIN 3.1 GM/DL (3.2-5.2); ANION GAP 6 MEQ/L (8-16); BLOOD UREA NITROGEN 24 MG/DL (7-18); CALCIUM LEVEL 8.8 MG/DL (8.8-10.2); CARBON DIOXIDE LEVEL 29 MEQ/L (21-32); CHLORIDE LEVEL 107 MEQ/L (98-107); CREATININE FOR GFR 1.04 MG/DL (0.55-1.30); GLOMERULAR FILTRATION RATE > 60.0 (>45); GLUCOSE, FASTING 99 MG/DL (70-100); PHOSPHORUS LEVEL 4.1 MG/DL (2.5-4.9); POTASSIUM SERUM 3.9 MEQ/L (3.5-5.1); SODIUM LEVEL 142 MEQ/L (136-145)
[2018-06-18] MEDS: IPRATROPIUM 0.5MG/ALBUTEROL 2.5MG INH SOL UD 3ML (DUONEB)(J7620) NEB ×3 (08:00→19:33)
[2018-06-18] MEDS: TIOTROPIUM INHALER/CAPSULE (SPIRIVA) INH (08:17)
[2018-06-18] MEDS: ADVAIR HFA 115/21MCG INHALER INH ×2 (08:17→19:34)
[2018-06-18] MEDS: ASPIRIN 81 MG CHEW TABLET PO (08:46)
[2018-06-18] MEDS: THIAMINE 100 MG TAB PO (08:46)
[2018-06-18] MEDS: PANTOPRAZOLE 40MG TAB (PROTONIX) PO (08:46)
[2018-06-18] MEDS: LABETALOL 100 MG TAB PO ×2 (08:46→21:20)
[2018-06-18] MEDS: DOCUSATE SODIUM 100 MG CAP PO ×2 (08:46→21:19)
[2018-06-18] MEDS: ATORVASTATIN 20 MG TAB PO (08:46)
[2018-06-18] MEDS: amLODIPine 10 MG TAB PO (08:46)
[2018-06-18] MEDS: APIXABAN 5 MG TAB (ELIQUIS) PO ×2 (08:46→21:19)
[2018-06-18] MEDS: LISINOPRIL 20 MG TAB PO ×2 (08:47→21:18)
[2018-06-18] MEDS: SODIUM CHLORIDE NASAL 0.65% SPRAY BTL (OCEAN) ×2 (08:47→21:20)
[2018-06-18] MEDS: SPIRONOLACTONE 25 MG TAB PO (08:47)
[2018-06-18] MEDS: ANALGESIC BALM CRM 120 GM TOP ×2 (08:47→21:20)
[2018-06-18] MEDS: FLUTICASONE PROP 0.05% NASAL SPRAY 16 GM (FLONASE) NARES ×2 (08:47→21:20)
[2018-06-18] MEDS: FLUoxetine 20 MG CAP PO (08:47)
[2018-06-18] MEDS: NICOTINE 21MG/24HR 1 EA TRANSDERMAL TD (08:48)
[2018-06-18] MEDS: PERCOCET 5MG/325MG TAB PO ×2 (09:48→21:19)
[2018-06-18] MEDS: SENNA 8.6 MG TAB (SENOKOT) PO (21:19)
[2018-06-19] MEDS: IPRATROPIUM 0.5MG/ALBUTEROL 2.5MG INH SOL UD 3ML (DUONEB)(J7620) NEB ×4 (02:00→20:00)
[2018-06-19 06:47] LABS: HEMATOCRIT 36.6 % (36.0-47.0); HEMOGLOBIN 11.4 g/dl (12.0-15.5); MEAN CORPUSCULAR HEMOGLOBIN 29.5 pg (27.0-33.0); MEAN CORPUSCULAR HGB CONC 31.1 g/dl (32.0-36.5); MEAN CORPUSCULAR VOLUME 94.8 fl (80.0-96.0); PLATELET COUNT, AUTOMATED 379 10^3/uL (150-450); RED BLOOD COUNT 3.86 10^6/uL (4.00-5.40); RED CELL DISTRIBUTION WIDTH 13.8 % (11.5-14.5); WHITE BLOOD COUNT 7.9 10^3/uL (4.0-10.0)
[2018-06-19 07:18] LABS: ALBUMIN 2.9 GM/DL (3.2-5.2); ANION GAP 9 MEQ/L (8-16); BLOOD UREA NITROGEN 29 MG/DL (7-18); CALCIUM LEVEL 9.6 MG/DL (8.8-10.2); CARBON DIOXIDE LEVEL 28 MEQ/L (21-32); CHLORIDE LEVEL 104 MEQ/L (98-107); CREATININE FOR GFR 1.04 MG/DL (0.55-1.30); GLOMERULAR FILTRATION RATE > 60.0 (>45); GLUCOSE, FASTING 95 MG/DL (70-100); PHOSPHORUS LEVEL 4.3 MG/DL (2.5-4.9); POTASSIUM SERUM 3.8 MEQ/L (3.5-5.1); SODIUM LEVEL 141 MEQ/L (136-145)
[2018-06-19] MEDS: ADVAIR HFA 115/21MCG INHALER INH ×2 (08:16→21:00)
[2018-06-19] MEDS: TIOTROPIUM INHALER/CAPSULE (SPIRIVA) INH (08:16)
[2018-06-19] MEDS: APIXABAN 5 MG TAB (ELIQUIS) PO ×2 (08:44→21:49)
[2018-06-19] MEDS: ATORVASTATIN 20 MG TAB PO (08:44)
[2018-06-19] MEDS: ASPIRIN 81 MG CHEW TABLET PO (08:44)
[2018-06-19] MEDS: SPIRONOLACTONE 25 MG TAB PO (08:44)
[2018-06-19] MEDS: LABETALOL 100 MG TAB PO ×2 (08:44→21:49)
[2018-06-19] MEDS: PERCOCET 5MG/325MG TAB PO (08:45)
[2018-06-19] MEDS: PANTOPRAZOLE 40MG TAB (PROTONIX) PO (08:45)
[2018-06-19] MEDS: DOCUSATE SODIUM 100 MG CAP PO ×2 (08:45→21:48)
[2018-06-19] MEDS: FLUoxetine 20 MG CAP PO (08:45)
[2018-06-19] MEDS: amLODIPine 10 MG TAB PO (08:45)
[2018-06-19] MEDS: THIAMINE 100 MG TAB PO (08:45)
[2018-06-19] MEDS: ANALGESIC BALM CRM 120 GM TOP ×2 (08:46→21:49)
[2018-06-19] MEDS: LISINOPRIL 20 MG TAB PO ×2 (08:46→21:48)
[2018-06-19] MEDS: SODIUM CHLORIDE NASAL 0.65% SPRAY BTL (OCEAN) ×2 (08:46→21:49)
[2018-06-19] MEDS: NICOTINE 21MG/24HR 1 EA TRANSDERMAL TD (08:46)
[2018-06-19] MEDS: FLUTICASONE PROP 0.05% NASAL SPRAY 16 GM (FLONASE) NARES ×2 (08:46→21:49)
[2018-06-19] MEDS: NORCO, ANEXSIA 5/325MG TABLET (HYDROcodone/ACETAMINOPHEN) PO (17:58)
[2018-06-19] MEDS: ACETAMINOPHEN TAB 650MG DOSE (2X325MG) PO (21:48)
[2018-06-19] MEDS: SENNA 8.6 MG TAB (SENOKOT) PO (21:48)
[2018-06-20] MEDS: TIOTROPIUM INHALER/CAPSULE (SPIRIVA) INH (07:26)
[2018-06-20] MEDS: IPRATROPIUM 0.5MG/ALBUTEROL 2.5MG INH SOL UD 3ML (DUONEB)(J7620) NEB ×3 (07:26→20:00)
[2018-06-20] MEDS: ADVAIR HFA 115/21MCG INHALER INH ×2 (07:27→21:00)
[2018-06-20] MEDS: NICOTINE 21MG/24HR 1 EA TRANSDERMAL TD (09:00)
[2018-06-20] MEDS: ATORVASTATIN 20 MG TAB PO (09:22)
[2018-06-20] MEDS: THIAMINE 100 MG TAB PO (09:22)
[2018-06-20] MEDS: ASPIRIN 81 MG CHEW TABLET PO (09:22)
[2018-06-20] MEDS: PANTOPRAZOLE 40MG TAB (PROTONIX) PO (09:23)
[2018-06-20] MEDS: amLODIPine 10 MG TAB PO (09:23)
[2018-06-20] MEDS: FLUoxetine 20 MG CAP PO (09:23)
[2018-06-20] MEDS: APIXABAN 5 MG TAB (ELIQUIS) PO ×2 (09:23→20:16)
[2018-06-20] MEDS: LISINOPRIL 20 MG TAB PO ×2 (09:23→20:17)
[2018-06-20] MEDS: SPIRONOLACTONE 25 MG TAB PO (09:23)
[2018-06-20] MEDS: DOCUSATE SODIUM 100 MG CAP PO ×2 (09:23→20:17)
[2018-06-20] MEDS: LABETALOL 100 MG TAB PO ×2 (09:24→20:18)
[2018-06-20] MEDS: NORCO, ANEXSIA 5/325MG TABLET (HYDROcodone/ACETAMINOPHEN) PO (09:32)
[2018-06-20] MEDS: SODIUM CHLORIDE NASAL 0.65% SPRAY BTL (OCEAN) ×2 (09:33→20:19)
[2018-06-20] MEDS: FLUTICASONE PROP 0.05% NASAL SPRAY 16 GM (FLONASE) NARES ×2 (09:33→20:20)
[2018-06-20] MEDS: ANALGESIC BALM CRM 120 GM TOP ×2 (09:34→20:20)
[2018-06-20 10:31] LABS: ANION GAP 6 MEQ/L (8-16); BLOOD UREA NITROGEN 24 MG/DL (7-18); CALCIUM LEVEL 9.5 MG/DL (8.8-10.2); CARBON DIOXIDE LEVEL 29 MEQ/L (21-32); CHLORIDE LEVEL 104 MEQ/L (98-107); CREATININE FOR GFR 0.99 MG/DL (0.55-1.30); GLOMERULAR FILTRATION RATE > 60.0 (>45); GLUCOSE, FASTING 96 MG/DL (70-100); PHOSPHORUS LEVEL 3.4 MG/DL (2.5-4.9); POTASSIUM SERUM 3.8 MEQ/L (3.5-5.1); SODIUM LEVEL 139 MEQ/L (136-145)
[2018-06-20] MEDS: SENNA 8.6 MG TAB (SENOKOT) PO (20:16)
[2018-06-20] MEDS: ACETAMINOPHEN TAB 650MG DOSE (2X325MG) PO (20:19)
[2018-06-21 07:23] LABS: ALBUMIN 2.8 GM/DL (3.2-5.2); ANION GAP 10 MEQ/L (8-16); BLOOD UREA NITROGEN 20 MG/DL (7-18); CALCIUM LEVEL 9.2 MG/DL (8.8-10.2); CARBON DIOXIDE LEVEL 26 MEQ/L (21-32); CHLORIDE LEVEL 104 MEQ/L (98-107); CREATININE FOR GFR 0.85 MG/DL (0.55-1.30); GLOMERULAR FILTRATION RATE > 60.0 (>45); GLUCOSE, FASTING 95 MG/DL (70-100); PHOSPHORUS LEVEL 3.1 MG/DL (2.5-4.9); POTASSIUM SERUM 3.6 MEQ/L (3.5-5.1); SODIUM LEVEL 140 MEQ/L (136-145)
[2018-06-21] MEDS: TIOTROPIUM INHALER/CAPSULE (SPIRIVA) INH (08:00)
[2018-06-21] MEDS: IPRATROPIUM 0.5MG/ALBUTEROL 2.5MG INH SOL UD 3ML (DUONEB)(J7620) NEB ×3 (08:00→20:00)
[2018-06-21] MEDS: ADVAIR HFA 115/21MCG INHALER INH ×2 (08:19→19:17)
[2018-06-21] MEDS: ANALGESIC BALM CRM 120 GM TOP ×2 (09:00→20:11)
[2018-06-21] MEDS: SPIRONOLACTONE 25 MG TAB PO (09:00)
[2018-06-21] MEDS: NICOTINE 21MG/24HR 1 EA TRANSDERMAL TD (09:00)
[2018-06-21] MEDS: ATORVASTATIN 20 MG TAB PO (09:59)
[2018-06-21] MEDS: LABETALOL 100 MG TAB PO ×2 (10:02→20:21)
[2018-06-21] MEDS: LISINOPRIL 20 MG TAB PO ×2 (10:03→20:21)
[2018-06-21] MEDS: NORCO, ANEXSIA 5/325MG TABLET (HYDROcodone/ACETAMINOPHEN) PO ×2 (10:03→20:10)
[2018-06-21] MEDS: amLODIPine 10 MG TAB PO (10:04)
[2018-06-21] MEDS: BISACODYL 5 MG TAB PO (10:04)
[2018-06-21] MEDS: PANTOPRAZOLE 40MG TAB (PROTONIX) PO (10:04)
[2018-06-21] MEDS: THIAMINE 100 MG TAB PO (10:04)
[2018-06-21] MEDS: APIXABAN 5 MG TAB (ELIQUIS) PO ×2 (10:04→20:10)
[2018-06-21] MEDS: FLUoxetine 20 MG CAP PO (10:04)
[2018-06-21] MEDS: DOCUSATE SODIUM 100 MG CAP PO ×2 (10:05→20:10)
[2018-06-21] MEDS: SODIUM CHLORIDE NASAL 0.65% SPRAY BTL (OCEAN) ×2 (10:05→20:10)
[2018-06-21] MEDS: ASPIRIN 81 MG CHEW TABLET PO (10:05)
[2018-06-21] MEDS: FLUTICASONE PROP 0.05% NASAL SPRAY 16 GM (FLONASE) NARES ×2 (10:06→20:11)
[2018-06-21] MEDS: SENNA 8.6 MG TAB (SENOKOT) PO (20:10)
[2018-06-21] MEDS: BISACODYL 10 MG SUPP PR (20:10)
[2018-06-22] MEDS: IPRATROPIUM 0.5MG/ALBUTEROL 2.5MG INH SOL UD 3ML (DUONEB)(J7620) NEB ×4 (01:31→19:39)
[2018-06-22 08:39] LABS: ALBUMIN 2.9 GM/DL (3.2-5.2); ANION GAP 6 MEQ/L (8-16); BLOOD UREA NITROGEN 20 MG/DL (7-18); CALCIUM LEVEL 9.5 MG/DL (8.8-10.2); CARBON DIOXIDE LEVEL 29 MEQ/L (21-32); CHLORIDE LEVEL 107 MEQ/L (98-107); CREATININE FOR GFR 0.94 MG/DL (0.55-1.30); GLOMERULAR FILTRATION RATE > 60.0 (>45); GLUCOSE, FASTING 99 MG/DL (70-100); PHOSPHORUS LEVEL 3.2 MG/DL (2.5-4.9); POTASSIUM SERUM 3.8 MEQ/L (3.5-5.1); SODIUM LEVEL 142 MEQ/L (136-145)
[2018-06-22] MEDS: amLODIPine 10 MG TAB PO (08:56)
[2018-06-22] MEDS: NORCO, ANEXSIA 5/325MG TABLET (HYDROcodone/ACETAMINOPHEN) PO ×2 (08:56→20:26)
[2018-06-22] MEDS: ASPIRIN 81 MG CHEW TABLET PO (08:56)
[2018-06-22] MEDS: SPIRONOLACTONE 25 MG TAB PO (08:56)
[2018-06-22] MEDS: LABETALOL 100 MG TAB PO ×2 (08:57→21:00)
[2018-06-22] MEDS: THIAMINE 100 MG TAB PO (08:57)
[2018-06-22] MEDS: DOCUSATE SODIUM 100 MG CAP PO ×2 (08:57→20:26)
[2018-06-22] MEDS: LISINOPRIL 20 MG TAB PO ×2 (08:57→20:28)
[2018-06-22] MEDS: PANTOPRAZOLE 40MG TAB (PROTONIX) PO (08:57)
[2018-06-22] MEDS: APIXABAN 5 MG TAB (ELIQUIS) PO ×2 (08:57→20:25)
[2018-06-22] MEDS: ATORVASTATIN 20 MG TAB PO (08:57)
[2018-06-22] MEDS: FLUoxetine 20 MG CAP PO (08:58)
[2018-06-22] MEDS: FLUTICASONE PROP 0.05% NASAL SPRAY 16 GM (FLONASE) NARES ×2 (08:58→20:28)
[2018-06-22] MEDS: SODIUM CHLORIDE NASAL 0.65% SPRAY BTL (OCEAN) ×2 (08:58→20:28)
[2018-06-22] MEDS: NICOTINE 21MG/24HR 1 EA TRANSDERMAL TD (08:58)
[2018-06-22] MEDS: ANALGESIC BALM CRM 120 GM TOP ×2 (08:59→20:29)
[2018-06-22] MEDS: ADVAIR HFA 115/21MCG INHALER INH ×2 (09:10→19:39)
[2018-06-22] MEDS: TIOTROPIUM INHALER/CAPSULE (SPIRIVA) INH (09:10)
[2018-06-22] MEDS: SENNA 8.6 MG TAB (SENOKOT) PO (20:25)
[2018-06-23] MEDS: IPRATROPIUM 0.5MG/ALBUTEROL 2.5MG INH SOL UD 3ML (DUONEB)(J7620) NEB ×4 (01:26→20:00)
[2018-06-23 07:28] LABS: ALBUMIN 2.9 GM/DL (3.2-5.2); ANION GAP 7 MEQ/L (8-16); BLOOD UREA NITROGEN 21 MG/DL (7-18); CALCIUM LEVEL 9.4 MG/DL (8.8-10.2); CARBON DIOXIDE LEVEL 29 MEQ/L (21-32); CHLORIDE LEVEL 107 MEQ/L (98-107); GLOMERULAR FILTRATION RATE > 60.0 (>45); GLUCOSE, FASTING 94 MG/DL (70-100); PHOSPHORUS LEVEL 3.6 MG/DL (2.5-4.9); POTASSIUM SERUM 3.7 MEQ/L (3.5-5.1); SODIUM LEVEL 143 MEQ/L (136-145)
[2018-06-23] MEDS: TIOTROPIUM INHALER/CAPSULE (SPIRIVA) INH (08:46)
[2018-06-23] MEDS: ADVAIR HFA 115/21MCG INHALER INH ×2 (08:46→20:19)
[2018-06-23] MEDS: NICOTINE 21MG/24HR 1 EA TRANSDERMAL TD (09:00)
[2018-06-23] MEDS: SODIUM CHLORIDE NASAL 0.65% SPRAY BTL (OCEAN) ×2 (09:00→21:36)
[2018-06-23] MEDS: FLUTICASONE PROP 0.05% NASAL SPRAY 16 GM (FLONASE) NARES ×2 (09:00→21:36)
[2018-06-23] MEDS: ANALGESIC BALM CRM 120 GM TOP ×2 (09:00→23:30)
[2018-06-23] MEDS: DOCUSATE SODIUM 100 MG CAP PO ×2 (09:00→21:34)
[2018-06-23] MEDS: THIAMINE 100 MG TAB PO (09:24)
[2018-06-23] MEDS: APIXABAN 5 MG TAB (ELIQUIS) PO ×2 (09:24→21:35)
[2018-06-23] MEDS: SPIRONOLACTONE 25 MG TAB PO (09:24)
[2018-06-23] MEDS: PANTOPRAZOLE 40MG TAB (PROTONIX) PO (09:24)
[2018-06-23] MEDS: amLODIPine 10 MG TAB PO (09:25)
[2018-06-23] MEDS: NORCO, ANEXSIA 5/325MG TABLET (HYDROcodone/ACETAMINOPHEN) PO (09:25)
[2018-06-23] MEDS: FLUoxetine 20 MG CAP PO (09:26)
[2018-06-23] MEDS: LISINOPRIL 20 MG TAB PO ×2 (09:26→21:35)
[2018-06-23] MEDS: LABETALOL 100 MG TAB PO ×2 (09:26→21:34)
[2018-06-23] MEDS: ASPIRIN 81 MG CHEW TABLET PO (09:26)
[2018-06-23] MEDS: ATORVASTATIN 20 MG TAB PO (09:26)
[2018-06-23] MEDS: SENNA 8.6 MG TAB (SENOKOT) PO (21:35)
[2018-06-23] MEDS: ACETAMINOPHEN TAB 650MG DOSE (2X325MG) PO (21:48)
[2018-06-24] MEDS: IPRATROPIUM 0.5MG/ALBUTEROL 2.5MG INH SOL UD 3ML (DUONEB)(J7620) NEB ×4 (00:27→20:00)
[2018-06-24 06:34] LABS: ANION GAP 9 MEQ/L (8-16); BLOOD UREA NITROGEN 21 MG/DL (7-18); CALCIUM LEVEL 9.1 MG/DL (8.8-10.2); CARBON DIOXIDE LEVEL 28 MEQ/L (21-32); CHLORIDE LEVEL 104 MEQ/L (98-107); CREATININE FOR GFR 0.89 MG/DL (0.55-1.30); GLOMERULAR FILTRATION RATE > 60.0 (>45); GLUCOSE, FASTING 99 MG/DL (70-100); PHOSPHORUS LEVEL 3.4 MG/DL (2.5-4.9); POTASSIUM SERUM 3.4 MEQ/L (3.5-5.1); SODIUM LEVEL 141 MEQ/L (136-145)
[2018-06-24] MEDS: TIOTROPIUM INHALER/CAPSULE (SPIRIVA) INH (07:28)
[2018-06-24] MEDS: ADVAIR HFA 115/21MCG INHALER INH ×2 (07:28→20:13)
[2018-06-24] MEDS: FLUTICASONE PROP 0.05% NASAL SPRAY 16 GM (FLONASE) NARES ×2 (09:00→21:00)
[2018-06-24] MEDS: NICOTINE 21MG/24HR 1 EA TRANSDERMAL TD (09:00)
[2018-06-24] MEDS: ANALGESIC BALM CRM 120 GM TOP ×2 (09:00→20:49)
[2018-06-24] MEDS: DOCUSATE SODIUM 100 MG CAP PO ×2 (09:00→20:46)
[2018-06-24] MEDS: SODIUM CHLORIDE NASAL 0.65% SPRAY BTL (OCEAN) ×2 (09:00→21:00)
[2018-06-24] MEDS: APIXABAN 5 MG TAB (ELIQUIS) PO ×2 (09:43→20:48)
[2018-06-24] MEDS: SPIRONOLACTONE 25 MG TAB PO (09:43)
[2018-06-24] MEDS: PANTOPRAZOLE 40MG TAB (PROTONIX) PO (09:43)
[2018-06-24] MEDS: ASPIRIN 81 MG CHEW TABLET PO (09:44)
[2018-06-24] MEDS: THIAMINE 100 MG TAB PO (09:44)
[2018-06-24] MEDS: ATORVASTATIN 20 MG TAB PO (09:45)
[2018-06-24] MEDS: FLUoxetine 20 MG CAP PO (09:45)
[2018-06-24] MEDS: amLODIPine 10 MG TAB PO (09:46)
[2018-06-24] MEDS: LABETALOL 100 MG TAB PO ×2 (09:47→20:46)
[2018-06-24] MEDS: LISINOPRIL 20 MG TAB PO ×2 (09:47→20:46)
[2018-06-24] MEDS: NORCO, ANEXSIA 5/325MG TABLET (HYDROcodone/ACETAMINOPHEN) PO (09:48)
[2018-06-24] MEDS: ACETAMINOPHEN TAB 650MG DOSE (2X325MG) PO (20:44)
[2018-06-24] MEDS: SENNA 8.6 MG TAB (SENOKOT) PO (20:46)
[2018-06-25] MEDS: IPRATROPIUM 0.5MG/ALBUTEROL 2.5MG INH SOL UD 3ML (DUONEB)(J7620) NEB ×5 (02:00→23:16)
[2018-06-25] MEDS: ADVAIR HFA 115/21MCG INHALER INH ×2 (07:30→20:01)
[2018-06-25] MEDS: TIOTROPIUM INHALER/CAPSULE (SPIRIVA) INH (07:30)
[2018-06-25 08:06] LABS: ALBUMIN 3.2 GM/DL (3.2-5.2); ANION GAP 8 MEQ/L (8-16); BLOOD UREA NITROGEN 13 MG/DL (7-18); CALCIUM LEVEL 9.6 MG/DL (8.8-10.2); CARBON DIOXIDE LEVEL 29 MEQ/L (21-32); CHLORIDE LEVEL 104 MEQ/L (98-107); GLOMERULAR FILTRATION RATE > 60.0 (>45); GLUCOSE, FASTING 94 MG/DL (70-100); PHOSPHORUS LEVEL 3.9 MG/DL (2.5-4.9); POTASSIUM SERUM 3.6 MEQ/L (3.5-5.1); SODIUM LEVEL 141 MEQ/L (136-145)
[2018-06-25] MEDS: ACETAMINOPHEN TAB 650MG DOSE (2X325MG) PO (09:44)
[2018-06-25] MEDS: ASPIRIN 81 MG CHEW TABLET PO (09:45)
[2018-06-25] MEDS: PANTOPRAZOLE 40MG TAB (PROTONIX) PO (09:45)
[2018-06-25] MEDS: amLODIPine 10 MG TAB PO (09:46)
[2018-06-25] MEDS: BISACODYL 5 MG TAB PO (09:46)
[2018-06-25] MEDS: LISINOPRIL 20 MG TAB PO ×2 (09:48→20:53)
[2018-06-25] MEDS: FLUoxetine 20 MG CAP PO (09:48)
[2018-06-25] MEDS: APIXABAN 5 MG TAB (ELIQUIS) PO ×2 (09:49→20:53)
[2018-06-25] MEDS: SPIRONOLACTONE 25 MG TAB PO (09:49)
[2018-06-25] MEDS: THIAMINE 100 MG TAB PO (09:49)
[2018-06-25] MEDS: LABETALOL 100 MG TAB PO ×2 (09:49→20:54)
[2018-06-25] MEDS: SODIUM CHLORIDE NASAL 0.65% SPRAY BTL (OCEAN) ×2 (09:50→20:55)
[2018-06-25] MEDS: DOCUSATE SODIUM 100 MG CAP PO ×2 (09:50→20:54)
[2018-06-25] MEDS: ATORVASTATIN 20 MG TAB PO (09:50)
[2018-06-25] MEDS: FLUTICASONE PROP 0.05% NASAL SPRAY 16 GM (FLONASE) NARES ×2 (09:50→20:55)
[2018-06-25] MEDS: ANALGESIC BALM CRM 120 GM TOP ×2 (09:51→20:55)
[2018-06-25] MEDS: NICOTINE 21MG/24HR 1 EA TRANSDERMAL TD (09:51)
[2018-06-25] MEDS: SENNA 8.6 MG TAB (SENOKOT) PO (20:53)
[2018-06-25] MEDS: NORCO, ANEXSIA 5/325MG TABLET (HYDROcodone/ACETAMINOPHEN) PO (20:57)
[2018-06-26 07:26] LABS: HEMATOCRIT 34.1 % (36.0-47.0); HEMOGLOBIN 10.9 g/dl (12.0-15.5); MEAN CORPUSCULAR HEMOGLOBIN 29.5 pg (27.0-33.0); MEAN CORPUSCULAR VOLUME 92.4 fl (80.0-96.0); PLATELET COUNT, AUTOMATED 314 10^3/uL (150-450); RED BLOOD COUNT 3.69 10^6/uL (4.00-5.40); RED CELL DISTRIBUTION WIDTH 13.5 % (11.5-14.5); WHITE BLOOD COUNT 6.2 10^3/uL (4.0-10.0)
[2018-06-26 07:43] LABS: ANION GAP 8 MEQ/L (8-16); BLOOD UREA NITROGEN 14 MG/DL (7-18); CALCIUM LEVEL 9.4 MG/DL (8.8-10.2); CARBON DIOXIDE LEVEL 28 MEQ/L (21-32); CHLORIDE LEVEL 103 MEQ/L (98-107); CREATININE FOR GFR 0.93 MG/DL (0.55-1.30); GLOMERULAR FILTRATION RATE > 60.0 (>45); GLUCOSE, FASTING 87 MG/DL (70-100); PHOSPHORUS LEVEL 3.4 MG/DL (2.5-4.9); POTASSIUM SERUM 3.4 MEQ/L (3.5-5.1); SODIUM LEVEL 139 MEQ/L (136-145)
[2018-06-26] MEDS: ADVAIR HFA 115/21MCG INHALER INH ×2 (07:53→21:31)
[2018-06-26] MEDS: TIOTROPIUM INHALER/CAPSULE (SPIRIVA) INH (07:53)
[2018-06-26] MEDS: IPRATROPIUM 0.5MG/ALBUTEROL 2.5MG INH SOL UD 3ML (DUONEB)(J7620) NEB ×3 (08:00→21:31)
[2018-06-26] MEDS: ATORVASTATIN 20 MG TAB PO (08:54)
[2018-06-26] MEDS: NORCO, ANEXSIA 5/325MG TABLET (HYDROcodone/ACETAMINOPHEN) PO ×2 (08:55→20:55)
[2018-06-26] MEDS: PANTOPRAZOLE 40MG TAB (PROTONIX) PO (08:55)
[2018-06-26] MEDS: FLUoxetine 20 MG CAP PO (08:55)
[2018-06-26] MEDS: ASPIRIN 81 MG CHEW TABLET PO (08:55)
[2018-06-26] MEDS: APIXABAN 5 MG TAB (ELIQUIS) PO ×2 (08:55→20:55)
[2018-06-26] MEDS: amLODIPine 10 MG TAB PO (08:56)
[2018-06-26] MEDS: THIAMINE 100 MG TAB PO (08:59)
[2018-06-26] MEDS: SPIRONOLACTONE 25 MG TAB PO (08:59)
[2018-06-26] MEDS: NICOTINE 21MG/24HR 1 EA TRANSDERMAL TD (09:00)
[2018-06-26] MEDS: ANALGESIC BALM CRM 120 GM TOP ×2 (09:00→21:00)
[2018-06-26] MEDS: LISINOPRIL 20 MG TAB PO ×2 (09:01→20:56)
[2018-06-26] MEDS: LABETALOL 100 MG TAB PO ×2 (09:02→20:56)
[2018-06-26] MEDS: DOCUSATE SODIUM 100 MG CAP PO ×2 (09:03→20:56)
[2018-06-26] MEDS: SODIUM CHLORIDE NASAL 0.65% SPRAY BTL (OCEAN) ×2 (09:03→21:00)
[2018-06-26] MEDS: FLUTICASONE PROP 0.05% NASAL SPRAY 16 GM (FLONASE) NARES ×2 (09:03→21:00)
[2018-06-26] MEDS: POTASSIUM CHLORIDE 10 MEQ SR TABLET PO (17:02)
[2018-06-26] MEDS: SENNA 8.6 MG TAB (SENOKOT) PO (20:55)
[2018-06-27] MEDS: IPRATROPIUM 0.5MG/ALBUTEROL 2.5MG INH SOL UD 3ML (DUONEB)(J7620) NEB ×2 (02:00→20:00)
[2018-06-27 07:31] LABS: ALBUMIN 3.1 GM/DL (3.2-5.2); ANION GAP 8 MEQ/L (8-16); BLOOD UREA NITROGEN 15 MG/DL (7-18); CALCIUM LEVEL 9.4 MG/DL (8.8-10.2); CARBON DIOXIDE LEVEL 27 MEQ/L (21-32); CHLORIDE LEVEL 105 MEQ/L (98-107); GLOMERULAR FILTRATION RATE > 60.0 (>45); GLUCOSE, FASTING 78 MG/DL (70-100); PHOSPHORUS LEVEL 3.2 MG/DL (2.5-4.9); POTASSIUM SERUM 3.8 MEQ/L (3.5-5.1); SODIUM LEVEL 140 MEQ/L (136-145)
[2018-06-27] MEDS: TIOTROPIUM INHALER/CAPSULE (SPIRIVA) INH (09:00)
[2018-06-27] MEDS: NICOTINE 21MG/24HR 1 EA TRANSDERMAL TD (09:00)
[2018-06-27] MEDS: DOCUSATE SODIUM 100 MG CAP PO ×2 (09:00→20:13)
[2018-06-27] MEDS: ADVAIR HFA 115/21MCG INHALER INH ×2 (09:06→20:05)
[2018-06-27] MEDS: FLUoxetine 20 MG CAP PO (09:10)
[2018-06-27] MEDS: SPIRONOLACTONE 25 MG TAB PO (09:10)
[2018-06-27] MEDS: POTASSIUM CHLORIDE 10 MEQ SR TABLET PO (09:10)
[2018-06-27] MEDS: THIAMINE 100 MG TAB PO (09:10)
[2018-06-27] MEDS: LISINOPRIL 20 MG TAB PO ×2 (09:12→20:12)
[2018-06-27] MEDS: LABETALOL 100 MG TAB PO ×2 (09:13→20:13)
[2018-06-27] MEDS: ATORVASTATIN 20 MG TAB PO (09:13)
[2018-06-27] MEDS: APIXABAN 5 MG TAB (ELIQUIS) PO ×2 (09:13→20:11)
[2018-06-27] MEDS: PANTOPRAZOLE 40MG TAB (PROTONIX) PO (09:13)
[2018-06-27] MEDS: SODIUM CHLORIDE NASAL 0.65% SPRAY BTL (OCEAN) ×2 (09:14→20:13)
[2018-06-27] MEDS: FLUTICASONE PROP 0.05% NASAL SPRAY 16 GM (FLONASE) NARES ×2 (09:14→20:13)
[2018-06-27] MEDS: ASPIRIN 81 MG CHEW TABLET PO (09:14)
[2018-06-27] MEDS: amLODIPine 10 MG TAB PO (09:14)
[2018-06-27] MEDS: ANALGESIC BALM CRM 120 GM TOP (09:15)
[2018-06-27] MEDS ORDERED: BISACODYL 10 MG SUPP PR (17:45)
[2018-06-27] MEDS: SENNA 8.6 MG TAB (SENOKOT) PO (20:12)
[2018-06-27] MEDS: ACETAMINOPHEN TAB 650MG DOSE (2X325MG) PO (20:21)
[2018-06-28] MEDS: IPRATROPIUM 0.5MG/ALBUTEROL 2.5MG INH SOL UD 3ML (DUONEB)(J7620) NEB ×2 (01:23→20:00)
[2018-06-28 07:51] LABS: ALBUMIN 3.1 GM/DL (3.2-5.2); ANION GAP 6 MEQ/L (8-16); BLOOD UREA NITROGEN 12 MG/DL (7-18); CALCIUM LEVEL 9.7 MG/DL (8.8-10.2); CARBON DIOXIDE LEVEL 28 MEQ/L (21-32); CHLORIDE LEVEL 107 MEQ/L (98-107); CREATININE FOR GFR 0.87 MG/DL (0.55-1.30); GLOMERULAR FILTRATION RATE > 60.0 (>45); GLUCOSE, FASTING 89 MG/DL (70-100); PHOSPHORUS LEVEL 3.1 MG/DL (2.5-4.9); SODIUM LEVEL 141 MEQ/L (136-145)
[2018-06-28 08:02] LABS: GOLD SPEC TUBE RECIEVED
[2018-06-28] MEDS: FLUoxetine 20 MG CAP PO (08:35)
[2018-06-28] MEDS: POTASSIUM CHLORIDE 10 MEQ SR TABLET PO (08:35)
[2018-06-28] MEDS: PANTOPRAZOLE 40MG TAB (PROTONIX) PO (08:36)
[2018-06-28] MEDS: amLODIPine 10 MG TAB PO (08:36)
[2018-06-28] MEDS: ATORVASTATIN 20 MG TAB PO (08:36)
[2018-06-28] MEDS: LISINOPRIL 20 MG TAB PO ×2 (08:36→21:24)
[2018-06-28] MEDS: APIXABAN 5 MG TAB (ELIQUIS) PO ×2 (08:36→21:23)
[2018-06-28] MEDS: ASPIRIN 81 MG CHEW TABLET PO (08:36)
[2018-06-28] MEDS: LABETALOL 100 MG TAB PO ×2 (08:36→21:24)
[2018-06-28] MEDS: THIAMINE 100 MG TAB PO (08:36)
[2018-06-28] MEDS: SPIRONOLACTONE 25 MG TAB PO (08:37)
[2018-06-28] MEDS: FLUTICASONE PROP 0.05% NASAL SPRAY 16 GM (FLONASE) NARES ×2 (08:38→21:25)
[2018-06-28] MEDS: SODIUM CHLORIDE NASAL 0.65% SPRAY BTL (OCEAN) ×2 (08:38→21:25)
[2018-06-28] MEDS: DOCUSATE SODIUM 100 MG CAP PO ×2 (08:38→21:00)
[2018-06-28] MEDS: ACETAMINOPHEN TAB 650MG DOSE (2X325MG) PO ×2 (08:43→21:24)
[2018-06-28] MEDS: ADVAIR HFA 115/21MCG INHALER INH ×2 (09:00→20:45)
[2018-06-28] MEDS: TIOTROPIUM INHALER/CAPSULE (SPIRIVA) INH (09:00)
[2018-06-28] MEDS: SENNA 8.6 MG TAB (SENOKOT) PO (21:00)
[2018-06-29] MEDS: IPRATROPIUM 0.5MG/ALBUTEROL 2.5MG INH SOL UD 3ML (DUONEB)(J7620) NEB ×4 (02:00→20:00)
[2018-06-29 08:04] LABS: ALBUMIN 3.2 GM/DL (3.2-5.2); ANION GAP 8 MEQ/L (8-16); BLOOD UREA NITROGEN 11 MG/DL (7-18); CALCIUM LEVEL 9.5 MG/DL (8.8-10.2); CARBON DIOXIDE LEVEL 27 MEQ/L (21-32); CHLORIDE LEVEL 106 MEQ/L (98-107); CREATININE FOR GFR 0.94 MG/DL (0.55-1.30); GLOMERULAR FILTRATION RATE > 60.0 (>45); GLUCOSE, FASTING 95 MG/DL (70-100); PHOSPHORUS LEVEL 3.3 MG/DL (2.5-4.9); POTASSIUM SERUM 4.4 MEQ/L (3.5-5.1); SODIUM LEVEL 141 MEQ/L (136-145)
[2018-06-29] MEDS: PANTOPRAZOLE 40MG TAB (PROTONIX) PO (09:40)
[2018-06-29] MEDS: DOCUSATE SODIUM 100 MG CAP PO ×2 (09:40→21:00)
[2018-06-29] MEDS: FLUoxetine 20 MG CAP PO (09:40)
[2018-06-29] MEDS: THIAMINE 100 MG TAB PO (09:41)
[2018-06-29] MEDS: APIXABAN 5 MG TAB (ELIQUIS) PO ×2 (09:41→21:57)
[2018-06-29] MEDS: amLODIPine 10 MG TAB PO (09:41)
[2018-06-29] MEDS: SPIRONOLACTONE 25 MG TAB PO (09:42)
[2018-06-29] MEDS: LISINOPRIL 20 MG TAB PO ×2 (09:42→21:57)
[2018-06-29] MEDS: ATORVASTATIN 20 MG TAB PO (09:42)
[2018-06-29] MEDS: LABETALOL 100 MG TAB PO ×2 (09:42→21:57)
[2018-06-29] MEDS: ASPIRIN 81 MG CHEW TABLET PO (09:42)
[2018-06-29] MEDS: POTASSIUM CHLORIDE 10 MEQ SR TABLET PO (09:43)
[2018-06-29] MEDS: FLUTICASONE PROP 0.05% NASAL SPRAY 16 GM (FLONASE) NARES ×2 (09:43→21:58)
[2018-06-29] MEDS: ACETAMINOPHEN TAB 650MG DOSE (2X325MG) PO ×2 (09:43→21:57)
[2018-06-29] MEDS: SODIUM CHLORIDE NASAL 0.65% SPRAY BTL (OCEAN) ×2 (09:43→21:58)
[2018-06-29] MEDS: BISACODYL 10 MG SUPP PR (11:15)
[2018-06-29] MEDS: LACTULOSE 20 GM/30 ML SYRUP UD PO (11:15)
[2018-06-29] MEDS: TIOTROPIUM INHALER/CAPSULE (SPIRIVA) INH (14:19)
[2018-06-29] MEDS: ADVAIR HFA 115/21MCG INHALER INH ×2 (14:19→21:00)
[2018-06-29] MEDS: SENNA 8.6 MG TAB (SENOKOT) PO (21:00)
[2018-06-30 07:55] LABS: ALBUMIN 3.1 GM/DL (3.2-5.2); ANION GAP 8 MEQ/L (8-16); BLOOD UREA NITROGEN 20 MG/DL (7-18); CARBON DIOXIDE LEVEL 26 MEQ/L (21-32); CHLORIDE LEVEL 109 MEQ/L (98-107); CREATININE FOR GFR 0.96 MG/DL (0.55-1.30); GLOMERULAR FILTRATION RATE > 60.0 (>45); GLUCOSE, FASTING 93 MG/DL (70-100); PHOSPHORUS LEVEL 3.3 MG/DL (2.5-4.9); POTASSIUM SERUM 4.2 MEQ/L (3.5-5.1); SODIUM LEVEL 143 MEQ/L (136-145)
[2018-06-30] MEDS: IPRATROPIUM 0.5MG/ALBUTEROL 2.5MG INH SOL UD 3ML (DUONEB)(J7620) NEB ×3 (08:00→20:00)
[2018-06-30] MEDS: ADVAIR HFA 115/21MCG INHALER INH ×2 (09:18→19:30)
[2018-06-30] MEDS: TIOTROPIUM INHALER/CAPSULE (SPIRIVA) INH (09:18)
[2018-06-30] MEDS: PANTOPRAZOLE 40MG TAB (PROTONIX) PO (09:33)
[2018-06-30] MEDS: FLUoxetine 20 MG CAP PO (09:34)
[2018-06-30] MEDS: amLODIPine 10 MG TAB PO (09:34)
[2018-06-30] MEDS: LABETALOL 100 MG TAB PO ×2 (09:34→20:38)
[2018-06-30] MEDS: APIXABAN 5 MG TAB (ELIQUIS) PO ×2 (09:34→20:38)
[2018-06-30] MEDS: ACETAMINOPHEN TAB 650MG DOSE (2X325MG) PO ×2 (09:34→20:38)
[2018-06-30] MEDS: ASPIRIN 81 MG CHEW TABLET PO (09:35)
[2018-06-30] MEDS: SPIRONOLACTONE 25 MG TAB PO (09:35)
[2018-06-30] MEDS: POTASSIUM CHLORIDE 10 MEQ SR TABLET PO (09:35)
[2018-06-30] MEDS: LISINOPRIL 20 MG TAB PO ×2 (09:35→20:38)
[2018-06-30] MEDS: THIAMINE 100 MG TAB PO (09:35)
[2018-06-30] MEDS: ATORVASTATIN 20 MG TAB PO (09:36)
[2018-06-30] MEDS: FLUTICASONE PROP 0.05% NASAL SPRAY 16 GM (FLONASE) NARES ×2 (09:36→20:39)
[2018-06-30] MEDS: SODIUM CHLORIDE NASAL 0.65% SPRAY BTL (OCEAN) ×2 (09:36→20:39)
[2018-06-30] MEDS: DOCUSATE SODIUM 100 MG CAP PO ×3 (09:36→20:39)
[2018-06-30] MEDS: SENNA 8.6 MG TAB (SENOKOT) PO (20:39)
[2018-07-01] MEDS: IPRATROPIUM 0.5MG/ALBUTEROL 2.5MG INH SOL UD 3ML (DUONEB)(J7620) NEB ×4 (01:33→19:25)
[2018-07-01 07:10] LABS: BASO # 0.1 10^3/uL (0.0-0.2); BASO % 1.1 % (0.0-1.0); EOS # 0.3 10^3/uL (0.0-0.50); EOS % 4.9 % (0.0-3.0); HEMOGLOBIN 10.5 g/dl (12.0-15.5); IMMATURE GRANULOCYTE % 0.2 % (0-3.0); LYMPH # 2.9 10^3/uL (1.5-4.5); LYMPH % 50.4 % (24.0-44.0); MEAN CORPUSCULAR HEMOGLOBIN 29.7 pg (27.0-33.0); MEAN CORPUSCULAR HGB CONC 30.9 g/dl (32.0-36.5); MONO # 0.4 10^3/uL (0.0-0.8); MONO % 7.2 % (0.0-5.0); NEUTROPHILS # 2.1 10^3/uL (1.8-7.7); NEUTROPHILS % 36.2 % (36.0-66.0); PLATELET COUNT, AUTOMATED 265 10^3/uL (150-450); RED BLOOD COUNT 3.54 10^6/uL (4.00-5.40); RED CELL DISTRIBUTION WIDTH 13.9 % (11.5-14.5); WHITE BLOOD COUNT 5.7 10^3/uL (4.0-10.0)
[2018-07-01 07:38] LABS: ALBUMIN 3.4 GM/DL (3.2-5.2); ANION GAP 8 MEQ/L (8-16); BLOOD UREA NITROGEN 17 MG/DL (7-18); CALCIUM LEVEL 9.2 MG/DL (8.8-10.2); CARBON DIOXIDE LEVEL 29 MEQ/L (21-32); CHLORIDE LEVEL 105 MEQ/L (98-107); CREATININE FOR GFR 0.97 MG/DL (0.55-1.30); GLOMERULAR FILTRATION RATE > 60.0 (>45); GLUCOSE, FASTING 84 MG/DL (70-100); PHOSPHORUS LEVEL 3.6 MG/DL (2.5-4.9); POTASSIUM SERUM 4.2 MEQ/L (3.5-5.1); SODIUM LEVEL 142 MEQ/L (136-145)
[2018-07-01] MEDS: ADVAIR HFA 115/21MCG INHALER INH ×2 (07:54→19:26)
[2018-07-01] MEDS: TIOTROPIUM INHALER/CAPSULE (SPIRIVA) INH (07:54)
[2018-07-01] MEDS: ASPIRIN 81 MG CHEW TABLET PO (08:34)
[2018-07-01] MEDS: ACETAMINOPHEN TAB 650MG DOSE (2X325MG) PO ×2 (08:34→20:35)
[2018-07-01] MEDS: DOCUSATE SODIUM 100 MG CAP PO ×3 (08:34→20:34)
[2018-07-01] MEDS: POTASSIUM CHLORIDE 10 MEQ SR TABLET PO (08:34)
[2018-07-01] MEDS: amLODIPine 10 MG TAB PO (08:34)
[2018-07-01] MEDS: ATORVASTATIN 20 MG TAB PO (08:35)
[2018-07-01] MEDS: FLUTICASONE PROP 0.05% NASAL SPRAY 16 GM (FLONASE) NARES ×2 (08:35→20:35)
[2018-07-01] MEDS: FLUoxetine 20 MG CAP PO (08:35)
[2018-07-01] MEDS: LABETALOL 100 MG TAB PO ×2 (08:35→20:34)
[2018-07-01] MEDS: THIAMINE 100 MG TAB PO (08:35)
[2018-07-01] MEDS: SODIUM CHLORIDE NASAL 0.65% SPRAY BTL (OCEAN) ×2 (08:35→20:35)
[2018-07-01] MEDS: APIXABAN 5 MG TAB (ELIQUIS) PO ×2 (08:35→20:34)
[2018-07-01] MEDS: SPIRONOLACTONE 25 MG TAB PO (08:35)
[2018-07-01] MEDS: LISINOPRIL 20 MG TAB PO ×2 (08:35→20:34)
[2018-07-01] MEDS: PANTOPRAZOLE 40MG TAB (PROTONIX) PO (08:35)
[2018-07-01] MEDS: SENNA 8.6 MG TAB (SENOKOT) PO (20:34)
[2018-07-02] MEDS: IPRATROPIUM 0.5MG/ALBUTEROL 2.5MG INH SOL UD 3ML (DUONEB)(J7620) NEB ×4 (02:00→19:38)
[2018-07-02 07:10] LABS: ALBUMIN 3.3 GM/DL (3.2-5.2); ANION GAP 8 MEQ/L (8-16); BLOOD UREA NITROGEN 19 MG/DL (7-18); CARBON DIOXIDE LEVEL 28 MEQ/L (21-32); CHLORIDE LEVEL 107 MEQ/L (98-107); GLOMERULAR FILTRATION RATE > 60.0 (>45); GLUCOSE, FASTING 96 MG/DL (70-100); PHOSPHORUS LEVEL 3.9 MG/DL (2.5-4.9); POTASSIUM SERUM 4.2 MEQ/L (3.5-5.1); SODIUM LEVEL 143 MEQ/L (136-145)
[2018-07-02] MEDS: ATORVASTATIN 20 MG TAB PO (08:24)
[2018-07-02] MEDS: APIXABAN 5 MG TAB (ELIQUIS) PO ×2 (08:25→20:26)
[2018-07-02] MEDS: ACETAMINOPHEN TAB 650MG DOSE (2X325MG) PO ×2 (08:25→14:38)
[2018-07-02] MEDS: LISINOPRIL 20 MG TAB PO ×2 (08:25→20:26)
[2018-07-02] MEDS: SPIRONOLACTONE 25 MG TAB PO (08:25)
[2018-07-02] MEDS: POTASSIUM CHLORIDE 10 MEQ SR TABLET PO (08:25)
[2018-07-02] MEDS: PANTOPRAZOLE 40MG TAB (PROTONIX) PO (08:25)
[2018-07-02] MEDS: LABETALOL 100 MG TAB PO ×2 (08:26→20:26)
[2018-07-02] MEDS: ASPIRIN 81 MG CHEW TABLET PO (08:26)
[2018-07-02] MEDS: DOCUSATE SODIUM 100 MG CAP PO ×2 (08:26→20:24)
[2018-07-02] MEDS: THIAMINE 100 MG TAB PO (08:26)
[2018-07-02] MEDS: FLUoxetine 20 MG CAP PO (08:26)
[2018-07-02] MEDS: FLUTICASONE PROP 0.05% NASAL SPRAY 16 GM (FLONASE) NARES ×2 (08:26→20:24)
[2018-07-02] MEDS: amLODIPine 10 MG TAB PO (08:26)
[2018-07-02] MEDS: SODIUM CHLORIDE NASAL 0.65% SPRAY BTL (OCEAN) ×2 (08:26→20:24)
[2018-07-02] MEDS: ADVAIR HFA 115/21MCG INHALER INH ×2 (14:21→19:37)
[2018-07-02] MEDS: TIOTROPIUM INHALER/CAPSULE (SPIRIVA) INH (14:21)
[2018-07-02] MEDS: SENNA 8.6 MG TAB (SENOKOT) PO (20:24)
[2018-07-03] MEDS: IPRATROPIUM 0.5MG/ALBUTEROL 2.5MG INH SOL UD 3ML (DUONEB)(J7620) NEB ×4 (01:29→13:56)
[2018-07-03 07:56] LABS: ALBUMIN 3.4 GM/DL (3.2-5.2); ANION GAP 8 MEQ/L (8-16); BLOOD UREA NITROGEN 17 MG/DL (7-18); CARBON DIOXIDE LEVEL 27 MEQ/L (21-32); CHLORIDE LEVEL 108 MEQ/L (98-107); CREATININE FOR GFR 0.83 MG/DL (0.55-1.30); GLOMERULAR FILTRATION RATE > 60.0 (>45); GLUCOSE, FASTING 101 MG/DL (70-100); PHOSPHORUS LEVEL 3.3 MG/DL (2.5-4.9); POTASSIUM SERUM 3.9 MEQ/L (3.5-5.1); SODIUM LEVEL 143 MEQ/L (136-145)
[2018-07-03] MEDS: TIOTROPIUM INHALER/CAPSULE (SPIRIVA) INH (08:04)
[2018-07-03] MEDS: ADVAIR HFA 115/21MCG INHALER INH ×2 (08:04→19:59)
[2018-07-03] MEDS: SPIRONOLACTONE 25 MG TAB PO (09:24)
[2018-07-03] MEDS: POTASSIUM CHLORIDE 10 MEQ SR TABLET PO (09:25)
[2018-07-03] MEDS: amLODIPine 10 MG TAB PO (09:25)
[2018-07-03] MEDS: LISINOPRIL 20 MG TAB PO ×2 (09:25→20:20)
[2018-07-03] MEDS: ASPIRIN 81 MG CHEW TABLET PO (09:26)
[2018-07-03] MEDS: FLUoxetine 20 MG CAP PO (09:26)
[2018-07-03] MEDS: LABETALOL 100 MG TAB PO ×2 (09:26→20:22)
[2018-07-03] MEDS: PANTOPRAZOLE 40MG TAB (PROTONIX) PO (09:26)
[2018-07-03] MEDS: ATORVASTATIN 20 MG TAB PO (09:26)
[2018-07-03] MEDS: ACETAMINOPHEN TAB 650MG DOSE (2X325MG) PO (09:26)
[2018-07-03] MEDS: THIAMINE 100 MG TAB PO (09:26)
[2018-07-03] MEDS: APIXABAN 5 MG TAB (ELIQUIS) PO ×2 (09:26→20:20)
[2018-07-03] MEDS: SODIUM CHLORIDE NASAL 0.65% SPRAY BTL (OCEAN) ×2 (09:27→20:22)
[2018-07-03] MEDS: DOCUSATE SODIUM 100 MG CAP PO ×2 (09:27→20:26)
[2018-07-03] MEDS: FLUTICASONE PROP 0.05% NASAL SPRAY 16 GM (FLONASE) NARES ×2 (09:27→20:22)
[2018-07-03] MEDS: SENNA 8.6 MG TAB (SENOKOT) PO (20:20)
[2018-07-04] MEDS: IPRATROPIUM 0.5MG/ALBUTEROL 2.5MG INH SOL UD 3ML (DUONEB)(J7620) NEB ×4 (02:00→23:13)
[2018-07-04] MEDS: ADVAIR HFA 115/21MCG INHALER INH ×2 (07:17→20:13)
[2018-07-04] MEDS: TIOTROPIUM INHALER/CAPSULE (SPIRIVA) INH (07:17)
[2018-07-04 07:44] LABS: ALBUMIN 3.5 GM/DL (3.2-5.2); ANION GAP 7 MEQ/L (8-16); BLOOD UREA NITROGEN 14 MG/DL (7-18); CALCIUM LEVEL 9.4 MG/DL (8.8-10.2); CARBON DIOXIDE LEVEL 27 MEQ/L (21-32); CHLORIDE LEVEL 106 MEQ/L (98-107); CREATININE FOR GFR 0.82 MG/DL (0.55-1.30); GLOMERULAR FILTRATION RATE > 60.0 (>45); GLUCOSE, FASTING 90 MG/DL (70-100); PHOSPHORUS LEVEL 3.4 MG/DL (2.5-4.9); POTASSIUM SERUM 3.9 MEQ/L (3.5-5.1); SODIUM LEVEL 140 MEQ/L (136-145)
[2018-07-04] MEDS: SPIRONOLACTONE 25 MG TAB PO (09:54)
[2018-07-04] MEDS: ASPIRIN 81 MG CHEW TABLET PO (09:54)
[2018-07-04] MEDS: THIAMINE 100 MG TAB PO (09:54)
[2018-07-04] MEDS: APIXABAN 5 MG TAB (ELIQUIS) PO ×2 (09:54→20:55)
[2018-07-04] MEDS: ACETAMINOPHEN TAB 650MG DOSE (2X325MG) PO (09:55)
[2018-07-04] MEDS: POTASSIUM CHLORIDE 10 MEQ SR TABLET PO (09:55)
[2018-07-04] MEDS: PANTOPRAZOLE 40MG TAB (PROTONIX) PO (09:55)
[2018-07-04] MEDS: FLUoxetine 20 MG CAP PO (09:55)
[2018-07-04] MEDS: ATORVASTATIN 20 MG TAB PO (09:55)
[2018-07-04] MEDS: LABETALOL 100 MG TAB PO ×2 (09:57→20:54)
[2018-07-04] MEDS: LISINOPRIL 20 MG TAB PO ×2 (09:57→20:55)
[2018-07-04] MEDS: amLODIPine 10 MG TAB PO (09:57)
[2018-07-04] MEDS: DOCUSATE SODIUM 100 MG CAP PO ×2 (09:58→20:57)
[2018-07-04] MEDS: FLUTICASONE PROP 0.05% NASAL SPRAY 16 GM (FLONASE) NARES ×2 (09:58→20:56)
[2018-07-04] MEDS: SODIUM CHLORIDE NASAL 0.65% SPRAY BTL (OCEAN) ×2 (09:58→20:56)
[2018-07-04] MEDS: SENNA 8.6 MG TAB (SENOKOT) PO (20:55)
[2018-07-05 07:15] LABS: BASO % 0.5 % (0.0-1.0); EOS # 0.2 10^3/uL (0.0-0.50); EOS % 3.3 % (0.0-3.0); HEMATOCRIT 33.6 % (36.0-47.0); HEMOGLOBIN 10.6 g/dl (12.0-15.5); IMMATURE GRANULOCYTE % 0.3 % (0-3.0); LYMPH % 40.9 % (24.0-44.0); MEAN CORPUSCULAR HEMOGLOBIN 29.8 pg (27.0-33.0); MEAN CORPUSCULAR HGB CONC 31.5 g/dl (32.0-36.5); MEAN CORPUSCULAR VOLUME 94.4 fl (80.0-96.0); MONO # 0.6 10^3/uL (0.0-0.8); MONO % 8.6 % (0.0-5.0); NEUTROPHILS # 3.4 10^3/uL (1.8-7.7); NEUTROPHILS % 46.4 % (36.0-66.0); PLATELET COUNT, AUTOMATED 233 10^3/uL (150-450); RED BLOOD COUNT 3.56 10^6/uL (4.00-5.40); RED CELL DISTRIBUTION WIDTH 13.6 % (11.5-14.5); WHITE BLOOD COUNT 7.3 10^3/uL (4.0-10.0)
[2018-07-05 07:32] LABS: ALBUMIN 3.2 GM/DL (3.2-5.2); ANION GAP 8 MEQ/L (8-16); BLOOD UREA NITROGEN 16 MG/DL (7-18); CALCIUM LEVEL 9.2 MG/DL (8.8-10.2); CARBON DIOXIDE LEVEL 27 MEQ/L (21-32); CHLORIDE LEVEL 104 MEQ/L (98-107); CREATININE FOR GFR 0.85 MG/DL (0.55-1.30); GLOMERULAR FILTRATION RATE > 60.0 (>45); GLUCOSE, FASTING 98 MG/DL (70-100); PHOSPHORUS LEVEL 3.2 MG/DL (2.5-4.9); SODIUM LEVEL 139 MEQ/L (136-145)
[2018-07-05] MEDS: IPRATROPIUM 0.5MG/ALBUTEROL 2.5MG INH SOL UD 3ML (DUONEB)(J7620) NEB ×3 (07:39→20:00)
[2018-07-05] MEDS: ADVAIR HFA 115/21MCG INHALER INH ×2 (08:01→20:42)
[2018-07-05] MEDS: TIOTROPIUM INHALER/CAPSULE (SPIRIVA) INH (08:02)
[2018-07-05] MEDS: PANTOPRAZOLE 40MG TAB (PROTONIX) PO (08:33)
[2018-07-05] MEDS: APIXABAN 5 MG TAB (ELIQUIS) PO ×2 (08:33→20:52)
[2018-07-05] MEDS: ASPIRIN 81 MG CHEW TABLET PO (08:33)
[2018-07-05] MEDS: DOCUSATE SODIUM 100 MG CAP PO ×2 (08:33→20:54)
[2018-07-05] MEDS: SPIRONOLACTONE 25 MG TAB PO (08:33)
[2018-07-05] MEDS: FLUoxetine 20 MG CAP PO (08:34)
[2018-07-05] MEDS: THIAMINE 100 MG TAB PO (08:34)
[2018-07-05] MEDS: LISINOPRIL 20 MG TAB PO ×2 (08:34→20:53)
[2018-07-05] MEDS: ATORVASTATIN 20 MG TAB PO (08:35)
[2018-07-05] MEDS: LABETALOL 100 MG TAB PO ×2 (08:35→20:53)
[2018-07-05] MEDS: amLODIPine 10 MG TAB PO (08:36)
[2018-07-05] MEDS: FLUTICASONE PROP 0.05% NASAL SPRAY 16 GM (FLONASE) NARES ×2 (08:36→20:56)
[2018-07-05] MEDS: POTASSIUM CHLORIDE 10 MEQ SR TABLET PO (08:36)
[2018-07-05] MEDS: SODIUM CHLORIDE NASAL 0.65% SPRAY BTL (OCEAN) ×2 (08:37→20:55)
[2018-07-05] MEDS: ACETAMINOPHEN TAB 650MG DOSE (2X325MG) PO ×2 (08:46→20:53)
[2018-07-05] MEDS: SENNA 8.6 MG TAB (SENOKOT) PO (20:54)
[2018-07-06] MEDS: IPRATROPIUM 0.5MG/ALBUTEROL 2.5MG INH SOL UD 3ML (DUONEB)(J7620) NEB ×4 (01:51→20:00)
[2018-07-06] MEDS: ADVAIR HFA 115/21MCG INHALER INH ×2 (07:53→21:00)
[2018-07-06] MEDS: TIOTROPIUM INHALER/CAPSULE (SPIRIVA) INH (07:53)
[2018-07-06] MEDS: DOCUSATE SODIUM 100 MG CAP PO ×2 (09:00→21:00)
[2018-07-06] MEDS: FLUoxetine 20 MG CAP PO (09:07)
[2018-07-06] MEDS: THIAMINE 100 MG TAB PO (09:07)
[2018-07-06] MEDS: LISINOPRIL 20 MG TAB PO ×2 (09:07→21:50)
[2018-07-06] MEDS: LABETALOL 100 MG TAB PO ×2 (09:08→21:49)
[2018-07-06] MEDS: APIXABAN 5 MG TAB (ELIQUIS) PO ×2 (09:09→21:50)
[2018-07-06] MEDS: ATORVASTATIN 20 MG TAB PO (09:09)
[2018-07-06] MEDS: ASPIRIN 81 MG CHEW TABLET PO (09:09)
[2018-07-06] MEDS: POTASSIUM CHLORIDE 10 MEQ SR TABLET PO (09:10)
[2018-07-06] MEDS: SPIRONOLACTONE 25 MG TAB PO (09:11)
[2018-07-06] MEDS: amLODIPine 10 MG TAB PO (09:11)
[2018-07-06] MEDS: SODIUM CHLORIDE NASAL 0.65% SPRAY BTL (OCEAN) ×2 (09:12→21:00)
[2018-07-06] MEDS: FLUTICASONE PROP 0.05% NASAL SPRAY 16 GM (FLONASE) NARES ×2 (09:12→21:00)
[2018-07-06] MEDS: PANTOPRAZOLE 40MG TAB (PROTONIX) PO (09:12)
[2018-07-06] MEDS: ACETAMINOPHEN TAB 650MG DOSE (2X325MG) PO ×2 (10:21→21:49)
[2018-07-06] MEDS: SENNA 8.6 MG TAB (SENOKOT) PO (21:00)
[2018-07-07] MEDS: IPRATROPIUM 0.5MG/ALBUTEROL 2.5MG INH SOL UD 3ML (DUONEB)(J7620) NEB ×4 (02:00→19:56)
[2018-07-07] MEDS: TIOTROPIUM INHALER/CAPSULE (SPIRIVA) INH (07:30)
[2018-07-07] MEDS: ADVAIR HFA 115/21MCG INHALER INH ×2 (07:30→19:56)
[2018-07-07 07:59] LABS: ALBUMIN 3.3 GM/DL (3.2-5.2); ANION GAP 7 MEQ/L (8-16); BLOOD UREA NITROGEN 14 MG/DL (7-18); CALCIUM LEVEL 9.4 MG/DL (8.8-10.2); CARBON DIOXIDE LEVEL 28 MEQ/L (21-32); CHLORIDE LEVEL 105 MEQ/L (98-107); CREATININE FOR GFR 0.87 MG/DL (0.55-1.30); GLOMERULAR FILTRATION RATE > 60.0 (>45); GLUCOSE, FASTING 90 MG/DL (70-100); PHOSPHORUS LEVEL 3.5 MG/DL (2.5-4.9); POTASSIUM SERUM 3.8 MEQ/L (3.5-5.1); SODIUM LEVEL 140 MEQ/L (136-145)
[2018-07-07] MEDS: LISINOPRIL 20 MG TAB PO ×2 (08:41→21:00)
[2018-07-07] MEDS: LABETALOL 100 MG TAB PO ×2 (08:41→21:24)
[2018-07-07] MEDS: APIXABAN 5 MG TAB (ELIQUIS) PO ×2 (08:41→21:25)
[2018-07-07] MEDS: ATORVASTATIN 20 MG TAB PO (08:41)
[2018-07-07] MEDS: THIAMINE 100 MG TAB PO (08:42)
[2018-07-07] MEDS: POTASSIUM CHLORIDE 10 MEQ SR TABLET PO (08:42)
[2018-07-07] MEDS: PANTOPRAZOLE 40MG TAB (PROTONIX) PO (08:42)
[2018-07-07] MEDS: SPIRONOLACTONE 25 MG TAB PO (08:42)
[2018-07-07] MEDS: ASPIRIN 81 MG CHEW TABLET PO (08:42)
[2018-07-07] MEDS: FLUTICASONE PROP 0.05% NASAL SPRAY 16 GM (FLONASE) NARES ×2 (08:43→21:28)
[2018-07-07] MEDS: amLODIPine 10 MG TAB PO (08:43)
[2018-07-07] MEDS: FLUoxetine 20 MG CAP PO (08:43)
[2018-07-07] MEDS: SODIUM CHLORIDE NASAL 0.65% SPRAY BTL (OCEAN) ×2 (08:43→21:28)
[2018-07-07] MEDS: DOCUSATE SODIUM 100 MG CAP PO ×2 (08:44→21:29)
[2018-07-07] MEDS: SENNA 8.6 MG TAB (SENOKOT) PO (21:21)
[2018-07-08] MEDS: IPRATROPIUM 0.5MG/ALBUTEROL 2.5MG INH SOL UD 3ML (DUONEB)(J7620) NEB ×4 (01:12→20:00)
[2018-07-08 08:09] LABS: ALBUMIN 3.3 GM/DL (3.2-5.2); ANION GAP 6 MEQ/L (8-16); BLOOD UREA NITROGEN 14 MG/DL (7-18); CALCIUM LEVEL 9.1 MG/DL (8.8-10.2); CARBON DIOXIDE LEVEL 29 MEQ/L (21-32); CHLORIDE LEVEL 106 MEQ/L (98-107); CREATININE FOR GFR 0.92 MG/DL (0.55-1.30); GLOMERULAR FILTRATION RATE > 60.0 (>45); GLUCOSE, FASTING 93 MG/DL (70-100); PHOSPHORUS LEVEL 3.6 MG/DL (2.5-4.9); POTASSIUM SERUM 4.4 MEQ/L (3.5-5.1); SODIUM LEVEL 141 MEQ/L (136-145)
[2018-07-08] MEDS: POTASSIUM CHLORIDE 10 MEQ SR TABLET PO (08:48)
[2018-07-08] MEDS: ASPIRIN 81 MG CHEW TABLET PO (08:48)
[2018-07-08] MEDS: PANTOPRAZOLE 40MG TAB (PROTONIX) PO (08:48)
[2018-07-08] MEDS: ATORVASTATIN 20 MG TAB PO (08:48)
[2018-07-08] MEDS: SPIRONOLACTONE 25 MG TAB PO (08:48)
[2018-07-08] MEDS: APIXABAN 5 MG TAB (ELIQUIS) PO ×2 (08:48→20:45)
[2018-07-08] MEDS: LABETALOL 100 MG TAB PO ×2 (08:48→20:47)
[2018-07-08] MEDS: FLUoxetine 20 MG CAP PO (08:49)
[2018-07-08] MEDS: FLUTICASONE PROP 0.05% NASAL SPRAY 16 GM (FLONASE) NARES ×2 (08:49→20:50)
[2018-07-08] MEDS: THIAMINE 100 MG TAB PO (08:49)
[2018-07-08] MEDS: SODIUM CHLORIDE NASAL 0.65% SPRAY BTL (OCEAN) ×2 (08:49→20:50)
[2018-07-08] MEDS: LISINOPRIL 20 MG TAB PO ×2 (08:49→20:49)
[2018-07-08] MEDS: amLODIPine 10 MG TAB PO (08:49)
[2018-07-08] MEDS: ACETAMINOPHEN TAB 650MG DOSE (2X325MG) PO ×2 (08:50→20:45)
[2018-07-08] MEDS: DOCUSATE SODIUM 100 MG CAP PO ×2 (08:50→20:49)
[2018-07-08] MEDS: ADVAIR HFA 115/21MCG INHALER INH ×2 (09:14→20:19)
[2018-07-08] MEDS: TIOTROPIUM INHALER/CAPSULE (SPIRIVA) INH (09:14)
[2018-07-08] MEDS: SENNA 8.6 MG TAB (SENOKOT) PO (20:45)
[2018-07-09] MEDS: IPRATROPIUM 0.5MG/ALBUTEROL 2.5MG INH SOL UD 3ML (DUONEB)(J7620) NEB ×4 (01:13→20:00)
[2018-07-09 06:49] LABS: ALBUMIN 3.4 GM/DL (3.2-5.2); ANION GAP 9 MEQ/L (8-16); BLOOD UREA NITROGEN 12 MG/DL (7-18); CALCIUM LEVEL 9.7 MG/DL (8.8-10.2); CARBON DIOXIDE LEVEL 26 MEQ/L (21-32); CHLORIDE LEVEL 106 MEQ/L (98-107); CREATININE FOR GFR 0.78 MG/DL (0.55-1.30); GLOMERULAR FILTRATION RATE > 60.0 (>45); GLUCOSE, FASTING 99 MG/DL (70-100); PHOSPHORUS LEVEL 3.6 MG/DL (2.5-4.9); POTASSIUM SERUM 3.7 MEQ/L (3.5-5.1); SODIUM LEVEL 141 MEQ/L (136-145)
[2018-07-09] MEDS: ADVAIR HFA 115/21MCG INHALER INH ×2 (08:40→20:31)
[2018-07-09] MEDS: TIOTROPIUM INHALER/CAPSULE (SPIRIVA) INH (08:40)
[2018-07-09] MEDS: DOCUSATE SODIUM 100 MG CAP PO ×2 (09:00→20:07)
[2018-07-09] MEDS: SPIRONOLACTONE 25 MG TAB PO (09:14)
[2018-07-09] MEDS: FLUoxetine 20 MG CAP PO (09:15)
[2018-07-09] MEDS: APIXABAN 5 MG TAB (ELIQUIS) PO ×2 (09:15→20:51)
[2018-07-09] MEDS: POTASSIUM CHLORIDE 10 MEQ SR TABLET PO (09:15)
[2018-07-09] MEDS: PANTOPRAZOLE 40MG TAB (PROTONIX) PO (09:15)
[2018-07-09] MEDS: ASPIRIN 81 MG CHEW TABLET PO (09:15)
[2018-07-09] MEDS: THIAMINE 100 MG TAB PO (09:15)
[2018-07-09] MEDS: ATORVASTATIN 20 MG TAB PO (09:15)
[2018-07-09] MEDS: amLODIPine 10 MG TAB PO (09:15)
[2018-07-09] MEDS: LISINOPRIL 20 MG TAB PO ×2 (09:15→20:50)
[2018-07-09] MEDS: LABETALOL 100 MG TAB PO ×2 (09:16→20:51)
[2018-07-09] MEDS: FLUTICASONE PROP 0.05% NASAL SPRAY 16 GM (FLONASE) NARES ×2 (09:16→20:51)
[2018-07-09] MEDS: SODIUM CHLORIDE NASAL 0.65% SPRAY BTL (OCEAN) ×2 (09:16→20:51)
[2018-07-09] MEDS: ACETAMINOPHEN TAB 650MG DOSE (2X325MG) PO ×2 (09:16→20:50)
[2018-07-09] MEDS: SENNA 8.6 MG TAB (SENOKOT) PO (20:51)
[2018-07-10] MEDS: IPRATROPIUM 0.5MG/ALBUTEROL 2.5MG INH SOL UD 3ML (DUONEB)(J7620) NEB ×4 (02:00→20:00)
[2018-07-10 07:20] LABS: BASO # 0.1 10^3/uL (0.0-0.2); BASO % 0.7 % (0.0-1.0); EOS # 0.2 10^3/uL (0.0-0.50); EOS % 3.4 % (0.0-3.0); HEMATOCRIT 33.6 % (36.0-47.0); HEMOGLOBIN 10.5 g/dl (12.0-15.5); IMMATURE GRANULOCYTE % 0.3 % (0-3.0); LYMPH % 42.3 % (24.0-44.0); MEAN CORPUSCULAR HEMOGLOBIN 29.7 pg (27.0-33.0); MEAN CORPUSCULAR HGB CONC 31.3 g/dl (32.0-36.5); MEAN CORPUSCULAR VOLUME 94.9 fl (80.0-96.0); MONO # 0.6 10^3/uL (0.0-0.8); MONO % 8.5 % (0.0-5.0); NEUTROPHILS # 3.1 10^3/uL (1.8-7.7); NEUTROPHILS % 44.8 % (36.0-66.0); PLATELET COUNT, AUTOMATED 256 10^3/uL (150-450); RED BLOOD COUNT 3.54 10^6/uL (4.00-5.40); RED CELL DISTRIBUTION WIDTH 13.6 % (11.5-14.5)
[2018-07-10 07:41] LABS: ALBUMIN 3.3 GM/DL (3.2-5.2); ANION GAP 8 MEQ/L (8-16); BLOOD UREA NITROGEN 13 MG/DL (7-18); CARBON DIOXIDE LEVEL 29 MEQ/L (21-32); CHLORIDE LEVEL 105 MEQ/L (98-107); CREATININE FOR GFR 0.94 MG/DL (0.55-1.30); GLOMERULAR FILTRATION RATE > 60.0 (>45); GLUCOSE, FASTING 88 MG/DL (70-100); PHOSPHORUS LEVEL 3.6 MG/DL (2.5-4.9); POTASSIUM SERUM 3.8 MEQ/L (3.5-5.1); SODIUM LEVEL 142 MEQ/L (136-145)
[2018-07-10] MEDS: TIOTROPIUM INHALER/CAPSULE (SPIRIVA) INH (07:53)
[2018-07-10] MEDS: ADVAIR HFA 115/21MCG INHALER INH ×2 (07:53→21:00)
[2018-07-10] MEDS: ACETAMINOPHEN TAB 650MG DOSE (2X325MG) PO ×2 (08:44→21:00)
[2018-07-10] MEDS: LABETALOL 100 MG TAB PO ×2 (08:45→21:00)
[2018-07-10] MEDS: ATORVASTATIN 20 MG TAB PO (08:45)
[2018-07-10] MEDS: amLODIPine 10 MG TAB PO (08:45)
[2018-07-10] MEDS: ASPIRIN 81 MG CHEW TABLET PO (08:45)
[2018-07-10] MEDS: THIAMINE 100 MG TAB PO (08:46)
[2018-07-10] MEDS: POTASSIUM CHLORIDE 10 MEQ SR TABLET PO (08:46)
[2018-07-10] MEDS: APIXABAN 5 MG TAB (ELIQUIS) PO ×2 (08:46→20:59)
[2018-07-10] MEDS: SPIRONOLACTONE 25 MG TAB PO (08:46)
[2018-07-10] MEDS: FLUoxetine 20 MG CAP PO (08:46)
[2018-07-10] MEDS: LISINOPRIL 20 MG TAB PO ×2 (08:46→20:59)
[2018-07-10] MEDS: PANTOPRAZOLE 40MG TAB (PROTONIX) PO (08:46)
[2018-07-10] MEDS: FLUTICASONE PROP 0.05% NASAL SPRAY 16 GM (FLONASE) NARES ×2 (09:00→20:58)
[2018-07-10] MEDS: DOCUSATE SODIUM 100 MG CAP PO ×2 (09:00→21:00)
[2018-07-10] MEDS: SODIUM CHLORIDE NASAL 0.65% SPRAY BTL (OCEAN) ×2 (09:00→20:59)
[2018-07-10] MEDS: SENNA 8.6 MG TAB (SENOKOT) PO (21:00)
[2018-07-11] MEDS: IPRATROPIUM 0.5MG/ALBUTEROL 2.5MG INH SOL UD 3ML (DUONEB)(J7620) NEB ×2 (01:30→08:00)
[2018-07-11] MEDS: ADVAIR HFA 115/21MCG INHALER INH (08:09)
[2018-07-11] MEDS: TIOTROPIUM INHALER/CAPSULE (SPIRIVA) INH (08:09)
[2018-07-11] MEDS: POTASSIUM CHLORIDE 10 MEQ SR TABLET PO (08:59)
[2018-07-11] MEDS: LISINOPRIL 20 MG TAB PO (08:59)
[2018-07-11] MEDS: DOCUSATE SODIUM 100 MG CAP PO ×2 (08:59→09:00)
[2018-07-11] MEDS: amLODIPine 10 MG TAB PO (08:59)
[2018-07-11] MEDS: SPIRONOLACTONE 25 MG TAB PO (09:00)
[2018-07-11] MEDS: ATORVASTATIN 20 MG TAB PO (09:00)
[2018-07-11] MEDS: PANTOPRAZOLE 40MG TAB (PROTONIX) PO (09:00)
[2018-07-11] MEDS: THIAMINE 100 MG TAB PO (09:00)
[2018-07-11] MEDS: FLUoxetine 20 MG CAP PO (09:00)
[2018-07-11] MEDS: ASPIRIN 81 MG CHEW TABLET PO (09:00)
[2018-07-11] MEDS: LABETALOL 100 MG TAB PO (09:02)
[2018-07-11] MEDS: ACETAMINOPHEN TAB 650MG DOSE (2X325MG) PO (09:03)
[2018-07-11] MEDS: FLUTICASONE PROP 0.05% NASAL SPRAY 16 GM (FLONASE) NARES (09:07)
[2018-07-11] MEDS: SODIUM CHLORIDE NASAL 0.65% SPRAY BTL (OCEAN) (09:07)
[2018-07-11] MEDS: APIXABAN 5 MG TAB (ELIQUIS) PO (10:09)
== END 2018-07-11 11:15 | disposition left against medical advice (07) | DRG 58 ==
LOC: M PM&R 06-20 20:11
DX: I69.320 Aphasia following cerebral infarction (principal); S32.415A Nondisplaced fracture of anterior wall of left acetabulum, initial encounter for closed fracture; I70.1 Atherosclerosis of renal artery; E87.5 Hyperkalemia; S32.502A Unspecified fracture of left pubis, initial encounter for closed fracture; I69.392 Facial weakness following cerebral infarction; I69.322 Dysarthria following cerebral infarction; K04.7 Periapical abscess without sinus; I69.398 Other sequelae of cerebral infarction; R26.89 Other abnormalities of gait and mobility; J44.9 Chronic obstructive pulmonary disease, unspecified; J45.909 Unspecified asthma, uncomplicated; I10 Essential (primary) hypertension; Z87.891 Personal history of nicotine dependence; Z79.82 Long term (current) use of aspirin; Z79.899 Other long term (current) drug therapy; F17.210 Nicotine dependence, cigarettes, uncomplicated; Y92.230 Patient room in hospital as the place of occurrence of the external cause; W19.XXXA Unspecified fall, initial encounter; L23.3 Allergic contact dermatitis due to drugs in contact with skin; T49.3X5A Adverse effect of emollients, demulcents and protectants, initial encounter; R33.9 Retention of urine, unspecified; E87.6 Hypokalemia

== ENCOUNTER → 2018-09-28 | Outpatient (REF) | payer OTHER ==
[~2018-09-28] MED LIST changes: +ACET650S3 PR; +ADV250INH INH; +ADVA115A INH; +ALDA25TA2 PO; +AMLO10TA5 PO; +AMOX500C PO; +ASPI81TA24 PO; +ASPI81TAEC PO; +ATOR1TAB21 PO; +ATOR80TA59 PO; +BISA10SU PR; +BISAC5TA PO; +CHIL81CH2 PO; +COLA100C5 PO; +DRIS50003 PO; +DULC10SU2 PR; +ELIQ5TAB PO; +FLON1SPR; +FLON1SPR NARES; +FLUO20CA19 PO; +FLUTISP NARES; +HYDR-3713 PO; +INCR1INH INH; +IPRA0.00 NEB; +KLOR10TA76 PO; +LABE10TAB PO; +LEVA1TAB2 PO; +LEVO500T3 PO; +LIPI80TA PO; +LISI-538 PO; +LISI10TA4 PO; +LISI2.5T5 PO; +MICR10CA PO; +NICO21DI6 TOP; +NORV5TAB PO; +PANT40TA3 PO; +PROT1TAB2 PO; +SENN18TA PO; +SPIR1CAP INH; +SPIR50TA4 PO; +THIA100TA PO; +TIOT18INH INH; +VENTAER INH
[2018-09-28 20:27] LABS: ALBUMIN 3.6 GM/DL (3.2-5.2); ALT/SGPT 18 U/L (12-78); BILIRUBIN,TOTAL 0.5 MG/DL (0.2-1.0); BLOOD UREA NITROGEN 12 MG/DL (7-18); CARBON DIOXIDE LEVEL 30 MEQ/L (21-32); CHLORIDE LEVEL 103 MEQ/L (98-107); CREATININE FOR GFR 1.04 MG/DL (0.55-1.30); FREE T4 1.03 NG/DL (0.76-1.46); GLOMERULAR FILTRATION RATE > 60.0 (>45); GLUCOSE, FASTING 95 MG/DL (70-100); POTASSIUM SERUM 3.2 MEQ/L (3.5-5.1); SODIUM LEVEL 142 MEQ/L (136-145); TOTAL 25(OH) VITAMIN D 10.9 NG/ML (30.0-100.0); TOTAL PROTEIN 7.4 GM/DL (6.4-8.2)
[2018-09-28 20:31] LABS: HEMATOCRIT 37.4 % (36.0-47.0); HEMOGLOBIN 11.2 g/dl (12.0-15.5); MEAN CORPUSCULAR HEMOGLOBIN 28.4 pg (27.0-33.0); MEAN CORPUSCULAR HGB CONC 29.9 g/dl (32.0-36.5); MEAN CORPUSCULAR VOLUME 94.9 fl (80.0-96.0); PLATELET COUNT, AUTOMATED 398 10^3/uL (150-450); RED BLOOD COUNT 3.94 10^6/uL (4.00-5.40); WHITE BLOOD COUNT 7.5 10^3/uL (4.0-10.0)
== END ==
LOC: M SFHCADAM 13:58
PROVIDERS: ATTEND Physician Assistant
DX: J44.9 Chronic obstructive pulmonary disease, unspecified (principal); I10 Essential (primary) hypertension; E55.9 Vitamin D deficiency, unspecified; M15.9 Polyosteoarthritis, unspecified; E78.49 Other hyperlipidemia

== ENCOUNTER → 2019-06-06 | Outpatient (REF) | payer OTHER ==
[~2019-06-06] MED LIST changes: -/TIOT18INH INH; +ASPI-286 PO; -CHIL81CH2 PO; +CRES10TA32 OR; +LISI-1046 PO; -LISI2.5T5 PO; -ROSU10TA OR
[2019-06-06 19:37] LABS: ALBUMIN 3.7 GM/DL (3.2-5.2); ALT/SGPT 17 U/L (12-78); BILIRUBIN,TOTAL 0.5 MG/DL (0.2-1.0); BLOOD UREA NITROGEN 16 MG/DL (7-18); CALCIUM LEVEL 9.3 MG/DL (8.8-10.2); CARBON DIOXIDE LEVEL 31 MEQ/L (21-32); CHLORIDE LEVEL 106 MEQ/L (98-107); CHOLESTEROL LEVEL 116 MG/DL (<200); CHOLESTEROL RISK RATIO 3.625 (<5); CREATININE FOR GFR 1.07 MG/DL (0.55-1.30); FREE T4 0.87 NG/DL (0.76-1.46); GLOMERULAR FILTRATION RATE > 60.0 (>45); GLUCOSE, FASTING 85 MG/DL (70-100); HDL CHOLESTEROL 32 MG/DL (>40); HEMATOCRIT 38.1 % (36.0-47.0); HEMOGLOBIN 11.7 g/dl (12.0-15.5); LDL CHOLESTEROL 58 MG/DL (<100); MEAN CORPUSCULAR HEMOGLOBIN 29.5 pg (27.0-33.0); MEAN CORPUSCULAR HGB CONC 30.7 g/dl (32.0-36.5); MEAN CORPUSCULAR VOLUME 96.2 fl (80.0-96.0); NON-HDL-C 84 MG/DL; PLATELET COUNT, AUTOMATED 275 10^3/uL (150-450); POTASSIUM SERUM 3.9 MEQ/L (3.5-5.1); RED BLOOD COUNT 3.96 10^6/uL (4.00-5.40); SODIUM LEVEL 141 MEQ/L (136-145); THYROID STIMULATING HORMONE 0.785 uIU/ML (0.358-3.740); TOTAL PROTEIN 7.3 GM/DL (6.4-8.2); TRIGLYCERIDES LEVEL 131 MG/DL (<150); WHITE BLOOD COUNT 6.9 10^3/uL (4.0-10.0)
[2019-06-06 19:39] LABS: TOTAL 25(OH) VITAMIN D 14.7 NG/ML (30.0-100.0)
== END ==
LOC: M SFHCADAM 14:08
PROVIDERS: ATTEND Physician Assistant
DX: I10 Essential (primary) hypertension (principal); F17.219 Nicotine dependence, cigarettes, with unspecified nicotine-induced disorders; Z86.73 Personal history of transient ischemic attack (TIA), and cerebral infarction without residual deficits; E78.00 Pure hypercholesterolemia, unspecified; E55.9 Vitamin D deficiency, unspecified